=== PATIENT | male | born 1970 | race Caucasian/White ===

== ENCOUNTER → 2016-08-24 | Outpatient (CLI) | payer OTHER ==
[~2016-08-24] MED LIST: ASCA500 PO; CLR10 PO; GEMF600T3 PO; MULT-506 PO; OMEG10007 PO; OXYC1TAB3 PO; [UNRECOGNIZED DRUG - OTHER]; [UNRECOGNIZED DRUG - OTHER]
[2016-08-24 09:42] LABS: ALT/SGPT 53 U/L (12-78); AST/SGOT 33 U/L (15-37); BLOOD UREA NITROGEN 13 mg/dl (7-18); BUN/CREATININE RATIO 15.1 (10-20); CALCIUM 9.3 mg/dl (8.5-10.1); CARBON DIOXIDE 28 mmol/L (21-32); CHLORIDE 98 mmol/L (98-107); CHOLESTEROL 244 mg/dl (0-200); CREATININE 0.85 mg/dl (0.60-1.40); GLUCOSE 101 mg/dl (70-99); POTASSIUM 3.1 mmol/L (3.5-5.1); SODIUM 137 mmol/L (136-145)
[2016-08-24 09:47] LABS: ALB/GLOB RATIO 1.2 (0.9-2); ALKALINE PHOSPHATASE 82 U/L (45-117); CHOLESTEROL/HDL RATIO 4.7; HDL CHOLESTEROL 52 mg/dl; LDL CHOLESTEROL CALCULATED 123 mg/dl; TRIGLYCERIDES 346 mg/dl (0-150); VERY LOW DENSITY LIPOPROT CALC 69 mg/dl
== END | disposition home or self-care (01) ==
LOC: C.LAB1850 06:45
PROVIDERS: ATTEND Nurse Practitioner Family
DX: E78.5 Hyperlipidemia, unspecified (principal); I11.0 Hypertensive heart disease with heart failure

== ENCOUNTER → 2017-06-14 | Outpatient (CLI) | payer OTHER ==
[2017-06-14 12:12] LABS: BASO % 0.6 %; BASO ABS # 0.06 K/uL (0-0.2); EOS % 1.7 %; EOS ABS # 0.17 K/uL (0-0.5); HEMATOCRIT 42.5 % (42-52); HEMOGLOBIN 15.5 g/dL (14.0-18.0); IG# 0.05 K/uL (0.00-0.02); LYMPH % 21.3 %; LYMPH ABS # 2.11 K/uL (1.2-3.4); MEAN CELL VOLUME 91.8 fL (80-100); MEAN CORPUSCULAR HEMOGLOBIN 33.5 pg (25-34); MEAN CORPUSCULAR HGB CONC 36.5 g/dl (32-36); MEAN PLATELET VOLUME 10.9 fL (7.4-10.4); MONO % 8.4 %; MONO ABS # 0.83 K/uL (0.11-0.59); NEUT % 67.5 %; PLATELET COUNT 256 K/uL (130-400); RED CELL DISTRIBUTION WIDTH CV 13.7 % (11.5-14.5); RED CELL DISTRIBUTION WIDTH SD 44.8 fL (36.4-46.3); WHITE BLOOD COUNT 9.92 K/uL (4.8-10.8)
[2017-06-14 12:39] LABS: ALBUMIN 3.8 gm/dl (3.4-5.0); ALT/SGPT 31 U/L (12-78); AST/SGOT 20 U/L (15-37); BLOOD UREA NITROGEN 15 mg/dl (7-18); CALCIUM 8.7 mg/dl (8.5-10.1); CARBON DIOXIDE 25 mmol/L (21-32); CREATININE 0.78 mg/dl (0.60-1.40); GLUCOSE 98 mg/dl (70-99); POTASSIUM 3.5 mmol/L (3.5-5.1); SODIUM 136 mmol/L (136-145); URIC ACID 8.1 mg/dl (2.6-7.2)
[2017-06-14 12:48] LABS: ALKALINE PHOSPHATASE 76 U/L (45-117); CHOLESTEROL 236 mg/dl (0-200)
[2017-06-14 12:59] LABS: LDL CHOLESTEROL (DIRECT) 83 mg/dl
== END | disposition home or self-care (01) ==
LOC: C.LAB1850 10:26
PROVIDERS: ATTEND Nurse Practitioner Family
DX: R53.81 Other malaise (principal); E78.5 Hyperlipidemia, unspecified

== ENCOUNTER → 2017-09-21 | Outpatient (CLI) | payer OTHER | END | disposition home or self-care (01) | LOC: C.LAB1850 11:19 | PROVIDERS: ATTEND Nurse Practitioner Family | DX: E79.0 Hyperuricemia without signs of inflammatory arthritis and tophaceous disease (principal) ==

== ENCOUNTER 2020-10-24 06:07 | Observation (INO) ==
--- NOTE | 2020-10-06 12:12 | PAT Medication Instructions ---
Medication Instructions Date of Service October 06, 2020 Home Medications Medication Instructions Recorded gemfibrozil 600 mg tablet 600 mg PO BID #180 tab 05/09/20 metformin 1,000 mg tablet 1,000 mg PO BID #180 tab 07/01/20 meloxicam 7.5 mg tablet 7.5 mg PO BID #60 tab 07/03/20 albuterol sulfate 90 mcg/actuation aerosol inhaler 1 puff INHALATION Q6 PRN cetirizine 10 mg tablet 10 mg PO QPM gemfibrozil 600 mg tablet 600 mg PO BID metformin 1,000 mg tablet 1,000 mg PO BID meloxicam 7.5 mg tablet 7.5 mg PO BID allopurinol 100 mg PO QPM alprazolam 0.5 mg PO DAILY PRN amlodipine 10 mg PO QPM dextroamphetamine-amphetamine [Adderall] 20 mg PO BID diphenhydramine HCl [Benadryl Allergy] 25 - 100 mg PO HS PRN hydrochlorothiazide 25 mg PO QPM lisinopril 40 mg PO QPM melatonin 10 mg PO HS PRN montelukast 10 mg PO QPM multivitamin 1 tab PO QPM ASK your surgeon for instructions meloxicam 7.5 mg tablet 7.5 mg PO BID STOP taking 48 hours before surgery gemfibrozil 600 mg tablet 600 mg PO BID Take morning of surgery With a small sip of water, OTHERWISE NOTHING TO EAT OR DRINK AFTER MIDNIGHT: albuterol sulfate 90 mcg/actuation aerosol inhaler 1 puff INHALATION Q6 PRN (if needed) alprazolam 0.5 mg PO DAILY PRN (if needed) *Bring your inhaler with you to the hospital* Take evening before surgery albuterol sulfate 90 mcg/actuation aerosol inhaler 1 puff INHALATION Q6 PRN (if needed) cetirizine 10 mg tablet 10 mg PO QPM metformin 1,000 mg tablet 1,000 mg PO BID meloxicam 7.5 mg tablet 7.5 mg PO BIDallopurinol 100 mg PO QPM alprazolam 0.5 mg PO DAILY PRN (if needed) amlodipine 10 mg PO QPM dextroamphetamine-amphetamine [Adderall] 20 mg PO BID diphenhydramine HCl [Benadryl Allergy] 25 - 100 mg PO HS PRN (if needed) hydrochlorothiazide 25 mg PO QPM lisinopril 40 mg PO QPM melatonin 10 mg PO HS PRN (if needed) montelukast 10 mg PO QPM multivitamin 1 tab PO QPM Other Notes If you have any questions please call us at [phone] or [phone] or [phone] or [phone]
--- NOTE | 2020-10-07 08:30 | Anesthesiology Consultation ---
Date of Service October 07, 2020 Assessment & Plan (1) Encounter for pre-operative examination: COVID Status: As of 10/07 assessment, patient denies travel to endemic area, known exposure/sick contacts, or symptoms of COVID19. Patient instructed that they and their household members must follow strict social distancing guidelines, wear a mask in public and avoid travel/events/gatherings for 14 days prior to surgery. Preoperative COVID19 testing to be completed prior to surgery per surgeon's arrangements (10/21 per pt, 3 days to accommodate his work schedule). Patient made aware to self-isolate as much as possible between COVID testing and surgery. Patient is fully vaccinated. BSG AM DOS Chart Review Chart Review: Acceptable Risk for Surgery and Patient seen in Pre Admission Testing Teaching & Discussion Instructed NPO after midnight before surgery, except medications with 15 cc of water. Medication instructions provided according to the PAT guidelines. History Surgery Operation Date: 10/24/20 11:25 Proposed Procedures p Right Total Hip Arthroplasty - Abner Brooks MD Height/Weight Height: 5 ft 11 in Weight: 107.9 kg Allergies Allergy/AdvReac Type Severity Reaction Status Date / Time No Known Allergies Allergy Unknown Verified 10/03/20 07:09 Medications Home Medications Medication Instructions Recorded Confirmed Last Taken albuterol sulfate 90 mcg/actuation 1 puff INHALATION Q6 PRN #1 gm 03/05/19 10/03/20 03/14/19 12:00 aerosol inhaler cetirizine 10 mg tablet 10 mg PO QPM 03/05/19 10/03/20 03/26/19 21:00 gemfibrozil 600 mg tablet 600 mg PO BID #180 tab 05/09/20 10/03/20 Unknown metformin 1,000 mg tablet 1,000 mg PO BID #180 tab 07/01/20 10/03/20 Unknown meloxicam 7.5 mg tablet 7.5 mg PO BID #60 tab 07/03/20 10/03/20 Unknown allopurinol 100 mg PO QPM 10/03/20 10/03/20 Unknown alprazolam 0.5 mg PO DAILY PRN 10/03/20 10/03/20 Unknown amlodipine 10 mg PO QPM 10/03/20 10/03/20 Unknown dextroamphetamine-amphetamine 20 mg PO BID 10/03/20 10/03/20 Unknown [Adderall] diphenhydramine HCl [Benadryl 25 - 100 mg PO HS PRN 10/03/20 10/03/20 Unknown Allergy] hydrochlorothiazide 25 mg PO QPM 10/03/20 10/03/20 Unknown lisinopril 40 mg PO QPM 10/03/20 10/03/20 Unknown melatonin 10 mg PO HS PRN 10/03/20 10/03/20 Unknown montelukast 10 mg PO QPM 10/03/20 10/03/20 Unknown multivitamin 1 tab PO QPM 10/03/20 10/03/20 Unknown Past Medical History Medical History ADHD Asthma Has not used inhaler all year. Seems allergy-induced, and mask-wearing has improved symptoms. Avascular necrosis of bone of right hip Diabetes mellitus, type 2 Gout Hyperlipidemia Hypertension Insomnia Alprazolam PRN Kidney stones Lumbar spondylosis Exercise / Class Metabolic Activity II 4-5 Yardwork/Stairs/Walk up hill Past Family History Family History Other Adopted Family history not known due to adoption Past Surgical History Surgical History History of colonoscopy History of left knee surgery History of open reduction and internal fixation (ORIF) procedure right leg---hardware in place History of tonsillectomy Past Anesthesia History No Hx of Anesthesia Complications and No Family Hx of Anesthesia Complications (adopted) History of PONV No Hx of PONV and No Hx of Motion Sickness Social History Smoking Status: Former smoker tobacco type: cigarettes Do You Dip or Chew Tobacco: No Smoking End Date: 2017 Hx Alcohol Use: Yes Alcohol type: hard liquor alcohol intake frequency: 3 or more drinks per day Hx Substance Use: No substance use type: does not use Review of Systems Pt denies any recent chest pain, shortness of breath, palpitations, cough, fever, URI, or uncontrolled acid reflux. Physical Exam Vital Signs BP: 133/84 P: 109bpm SPO2: 97% RA T: 98.4 F R: 16 ENMT Mouth: + dental restorations (few crowns on molars) and + small oral opening; no chipped teeth and no loose teeth Thyromental Distance: < 3.5 Finger Breadths (3) Mallampati Class: IV Neck normal visual inspection and + facial hair (small short rey); neck extension not limited Respiratory normal respiratory effort, lungs clear to auscultation + prolonged expiratory phase Cardiovascular Rate/Rhythm: regular rhythm and + tachycardic Heart Sounds: no murmur Extremities: no edema Testing Laboratory Results 10/07/20 08:44 10/07/20 08:44 PT 10.1 Seconds (9.0-12.0) 10/07/20 08:44 INR 1.0 (0.9-1.1) 10/07/20 08:44 APTT 26.5 Seconds (21.0-31.0) 10/07/20 08:44 Blood Type O Positive 10/07/20 08:44 Antibody Screen NEGATIVE 10/07/20 08:44 Electrocardiogram Date: 10/07/20 Tachycardia at 102 bpm. Nonspecific intraventricular conduction delay. Nonspecific ST and T wave abnormality. Compared with EKG of 10/20/2008, QRS duration has increased and T wave inversion is no longer evident in inferior leads. Chest X-Ray Date: 10/07/20 Findings: + NAD Pulmonary Function Test Date: 05/15/19 Mild to moderate airflow obstruction with a significant post-bronchodilator response. Normal lung volumes and diffusion.
--- NOTE | 2020-10-07 09:57 | XRay Report ---
XR chest Pre-admission PA/Lat HISTORY: 50 years-old Male pat chronic degenerative joint disease COMPARISON: Chest and rib radiographs 10/20/2008 TECHNIQUE: PA and lateral views of the chest FINDINGS: Cardiac mediastinal and hilar silhouettes are within normal limits. No pneumothorax, pleural effusion , airspace consolidation or overt pulmonary edema. The bones of the chest appear grossly intact. Spon dylitic spurring of the spine. IMPRESSION: No acute process. ACT 112: Negative or not required by law. The above report was generated using voice recognition software. It may contain grammatical, syntax o r spelling errors. Electronically signed by: Zachary Garcia M.D. 10/07/2020 9:55 AM
[2020-10-07 10:47] LABS: Basophils # (auto) 0.05 K/uL (0-0.2); Basophils % (auto) 0.5 %; Eosinophils % (auto) 1.9 %; Hematocrit (blood only) 37.9 % (42-52); Hemoglobin 13.5 g/dL (14.0-18.0); Immature Granulocytes # (auto) 0.06 K/uL (0.00-0.02); Immature Granulocytes % (auto) 0.6 %; Lymphocytes # (auto) 2.87 K/uL (1.2-3.4); Lymphocytes % (auto) 26.7 %; Mean Corpuscular Hemoglobin 32.7 pg (25-34); Mean Corpuscular Hgb Conc 35.6 g/dL (32-36); Mean Corpuscular Volume 91.8 fL (80-100); Mean Platelet Volume 11.5 fL (7.4-10.4); Monocytes # (auto) 0.84 K/uL (0.11-0.59); Monocytes % (auto) 7.8 %; Neutrophils # (auto) 6.73 K/uL (1.4-6.5); Neutrophils % (auto) 62.5 %; Platelet Count 312 K/uL (130-400); RDW Standard Deviation 43.5 fL (36.4-46.3); Red Blood Count 4.13 M/uL (4.7-6.1); White Blood Count 10.75 K/uL (4.8-10.8)
[2020-10-07 11:08] LABS: Partial Thromboplastin Time 26.5 Seconds (21.0-31.0); Prothrombin Time 10.1 Seconds (9.0-12.0)
--- NOTE | 2020-10-07 12:07 | Electrocardiogram Report ---
Test Reason : Blood Pressure : / mmHG Vent. Rate : 102 BPM Atrial Rate : 102 BPM P-R Int : 160 ms QRS Dur : 124 ms QT Int : 372 ms P-R-T Axes : 065 -13 078 degrees QTc Int : 484 ms Sinus tachycardia Non-specific intra-ventricular conduction delay Nonspecific ST and T wave abnormality Abnormal ECG When compared with ECG of 20-OCT-2008 20:02, QRS duration has increased T wave inversion no longer evident in Inferior leads Confirmed by Lee Pappas ([id number]) on 10/07/2020 12:06:45 PM Referred By: Abner Brooks Confirmed By:Eliezer Pappas
[2020-10-07 12:17] LABS: BUN Creatinine Ratio 14.9 (10-20); Calcium 9.7 mg/dl (8.5-10.1); Creatinine Clr Calc Pharmacy 109.1 ml/min; Est GFR (African American) 101.1 ml/min; Est GFR (Non-African American) 87.2 ml/min; Potassium 4.3 mmol/L (3.5-5.1)
[~2020-10-24 06:07] MED LIST changes: +ACETAMINOPHEN 500 MG TAB PO SCH; -ASCA500 PO; -CLR10 PO; +FAMOTIDINE 20 MG TAB PO SCH; +GABAPENTIN 900 MG DOSE PO SCH; -GEMF600T3 PO; +LR 500ML BOLUS, THEN 15ML/HR IV SCH; +LR 60ML/HR IV SCH; +MISSING PHYSICIAN SIGNATURE ON ORDER SCH; -MULT-506 PO; -OMEG10007 PO; -OXYC1TAB3 PO; +Scopolamine 1 MG TDSY TD SCH; +TRANEXAMIC ACID 1,000 MG **IV Pre-op IV SCH; -[UNRECOGNIZED DRUG - OTHER]; -[UNRECOGNIZED DRUG - OTHER]; +ceFAZolin 2000MG 2,000 MG/15 ML SYR IV SCH
--- NOTE | 2020-10-24 06:51 | History & Physical Bridge Note ---
Date of Service October 24, 2020 History & Physical Bridge Note I have examined the patient, reviewed the History & Physical and in the interval since the performance of the History & Physical I have noted the following changes of clinical significance: no changes noted
[2020-10-24] MEDS ORDERED: BUPIVACAINE 0.5 % 5 MG/1 ML PF 10ML VIAL ONE (07:16)
[2020-10-24] MEDS ORDERED: LIDOCAINE 2% 2 ML VIAL/AMP(20MG/ML) INFIL ONE (08:15)
[2020-10-24] MEDS ORDERED: PROPOFOL IV EMULSION 10 MG/ML 20 ML VIAL IV ONE ×3 (08:15→10:11)
[2020-10-24] MEDS ORDERED: MIDAZOLAM HCL 1 MG/ML 2ML VIAL ONE (08:16)
[2020-10-24] MEDS ORDERED: fentaNYL citrate 100 MCG/2 ML VIAL ONE (08:16)
[2020-10-24] MEDS ORDERED: MoRPHine SULFATE PF 1 MG/ML 10 ML AMP/VIAL ONE (08:33)
[2020-10-24] MEDS ORDERED: BUPIVACAINE/EPINEPHRINE 0.5% MPF 1:200,000 30 ML VIAL ONE (08:50)
[2020-10-24] MEDS ORDERED: ePHEDrine sulfate 50 MG/ML AMP IV PRN (09:11)
[2020-10-24] MEDS ORDERED: diphenhydrAMINE 50 MG/ML VIAL IV PRN (09:11)
[2020-10-24] MEDS ORDERED: NALOXONE HCL 0.4 MG/1 ML VIAL/CARP IV PRN (09:11)
[2020-10-24] MEDS ORDERED: ONDANSETRON INJ 2 MG/ML 2 ML VIAL IV PRN (09:11)
[2020-10-24] MEDS ORDERED: HYDROmorphone INJ 0.5 MG/0.5 ML SYR IV PRN (09:11)
[2020-10-24] MEDS ORDERED: NALOXONE HCL 1 MG in SODIUM CHLORIDE 0.9% 1000ML 1,000 ML IV PRN (09:11)
[2020-10-24] MEDS ORDERED: LACTATED RINGER'S 500 ML IV PRN (09:11)
[2020-10-24] MEDS ORDERED: NALOXONE HCL 0.08 MG in SYRINGE 1.8 ML IV PRN (09:11)
[2020-10-24] MEDS ORDERED: NO NARCOTICS OR SEDATIVES SCH (09:15)
[2020-10-24] MEDS ORDERED: DC INTRASPINAL MORPHINE SCH (09:15)
[2020-10-24] MEDS ORDERED: KETAMINE 50 MG/5 ML SYRINGE ONE (09:28)
[2020-10-24] MEDS ORDERED: PHENYLEPHRINE 100MCG/ML 5ML SYR ONE (10:10)
--- NOTE | 2020-10-24 10:59 | Operative Report ---
Post Operative Report Pre & Post Diagnosis Operation Date: 10/24/20 08:50 Pre-Op Diagnosis: Avascular Necrosis of Bone Hip Right Post-Op Diagnosis: Avascular Necrosis of Bone Hip Right I identified the patient and participated in the time-out.: Yes Procedure Operation Date: 10/24/20 08:50 Actual Procedures p Right Total Hip Arthroplasty--Uncemented(Right) - Abner Brooks MD Surgeon Abner Brooks MD Interviewing Clerk CADY Brooks Estimated Blood Loss 200 Findings Consistent with Post-Op Diagnosis Operative findings revealed a moderate-sized hip joint effusion. He had subchondral fracture with degloving of the articular surface of the femoral head. Fluids 1500 cc Specimens Right femoral head sent for pathology. Drains None. 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 X-rays revealed obvious large segment of the basilar necrosis with collapse. He failed conservative measures and elected proceed with surgical treatment. Description of Procedure Operative implants consist of: 1. Biomet G7 size 56 Wilson acetabular shell. 2. Biomet 6.5 cancellous acetabular screws 1 of 35 mm length 125 mm length. 3. [place] hole tripe scraper. 4. Highly cross-linked polyethylene liner with a 56 mm outer diameter and 40 mm diameter. 5. DePuy Corail size 14 KLA femoral stem. 6. +8.5/40 mm ceramic articular ball. The patient was taken to the operating room, identified and placed on the operating table supine position but all contact areas were appropriately padded. IV antibiotics 5 by anesthesia team. A spinal anesthetic and been implemented holding area. Basilio catheter was placed in sterile fashion. The patient then placed in the left lateral cubitus position. Axillary roll was placed. A Stulberg hip positioner was used for positioning. The right hip and leg were then prepped and draped in usual sterile fashion. A posterior lateral approach to the right hip was then performed through a curvilinear incision centered over the greater trochanter. Sharp dissection got through subcutaneous this down to the IT band gluteal fascia. The IT band gluteal fascia then incised longitudinally in line with skin incision. The underlying greater bursa was excised. The the piriformis and external rotators and the posterior hip joint capsule were then released from the posterior aspect hip joint as a single layer. Great care was taken throughout the procedure p rotect the sciatic nerve at all times. Hip was internally rotated and dislocated. A femoral neck osteotomy cut was then made with Final Cut about 18 mm above the lesser trochanter. Femoral head was removed and sent for pathology. The femur was retracted anteriorly. Attention drawn the acetabulum. The acetabular labrum was excised. Pulvinar fat was excised. Sequential reaming the acetabular was then performed begin with a size 47 and progressing up to a 55. I did reamed a little bit with a 56 mm reamer. Of note, we did curette the cartilage off the acetabulum before reaming. A 56 mm Biomet G7 acetabular shell was then placed in about 40 degrees lateral opening and 20 degrees of anteversion. Was fixed with two 6.5 cancellous acetabular screws. Trial liner was placed. We did elect to use a 40 head in order to maximize his stability as I was concerned about his alcohol use and compliance. Attention drawn the femur. The proximal femur was entered with a cookie-cutter followed by canal finder. I then broached. The size 8 and progressing up to 14. Got excellent fit of 14. Calcar reamer was used smooth and off the calcar. Then trialed the hip and the +8.5 articular ball provided full stability in full extension and external rotation flexion to 90 Degrees internal rotation to over [address] We elect to place these implants. All trial implants were removed. An apex hole tripe scraper was placed but highly cross-linked polyethylene liner was placed. A DePuy size 14 KLA femoral stem was impacted in position. +8.5/40 mm ceramic articular ball was placed. Hip was once again located and found to be stable. Attention drawn toward closing. The wound was irrigated scope soft pulsatile lavage solution. I did inject locally with 60 cc of half percent Marcaine with epinephrine. The posterior capsule and external rotators were then repaired through drill holes in the posterior trochanter as a single layer with #2 Tycron suture. The IT band gluteal fascia then closed in 1 PDS suture running fashion subcutaneous tissues then closed with 2 layers the deep layer #1 Vicryl suture in a buried interrupted fashion the subcutaneous tissues with 2-0 Dexon suture in a buried interrupted fashion. Skin was then closed with skin edy. Leg was then cleaned and dried and sterile dressing was Xeroform, 4 x 4's, sterile ABD pad, foam tape was applied. The patient then transferred to the recovery room in stable condition. Patient tolerated procedure well and there were no complications. Moe Brooks, my physician assistant to the ceo, was present for the entire procedure. His assistance was essential and required for appropriate patient positioning, prepping and draping, surgical exposure, performing the technical details of the operation, placement the implants, closure of the wound, and placement of the sterile bandage. I attest to the content of the Intraoperative Record and any orders documented therein. Any exceptions are noted below.
[2020-10-24] MEDS ORDERED: MAGNESIUM HYDROXIDE SUSP 30 ML UDC PO PRN (11:49)
[2020-10-24] MEDS ORDERED: TAMSULOSIN HCL 0.4 MG CAP PO PRN (11:49)
[2020-10-24] MEDS ORDERED: ALBUTEROL HFA 8 GM INHALER INH PRN (11:49)
[2020-10-24] MEDS ORDERED: bisacodyL 10 MG SUPP PR PRN (11:49)
[2020-10-24] MEDS ORDERED: DEXTROSE 50% 50 ML SYRINGE IV PRN (11:49)
[2020-10-24] MEDS ORDERED: GLUCAGON FOR INJ 1 MG VIAL SQ PRN (11:49)
[2020-10-24] MEDS ORDERED: GLUCOSE 40% GEL 15 GM TUBE PO PRN (11:49)
[2020-10-24] MEDS ORDERED: METOCLOPRAMIDE HCL INJ 5 MG/ML 2 ML VIAL IV PRN (11:49)
[2020-10-24] MEDS ORDERED: ALUMINUM/MAGNESIUM SUSP 30 ML UDC PO PRN (11:49)
[2020-10-24] MEDS ORDERED: CARBOHYDRATES FOR HYPOGLYCEMIA PO PRN (11:49)
[2020-10-24] MEDS ORDERED: GLUCOSE 10 TABS/TUBE PO PRN (11:49)
--- NOTE | 2020-10-24 12:00 | XRay Report ---
XR hip 1V RT w pelvis CLINICAL HISTORY: Postoperative evaluation. COMPARISON: Right hip radiographs June 30, 2020. FINDINGS: Alignment of the total right hip arthroplasty is anatomic. There are acetabular screws and skin edy. There is no periprosthetic fracture or unexpected radiopaque foreign body. IMPRESSION: Expected findings following total right hip arthroplasty. ACT 112: Negative or not required by law. Electronically signed by: Skinny Islas M.D. 10/24/2020 11:59 AM
[2020-10-24] MEDS ORDERED: PHARMACY GLYCEMIC MGMT CONSULT PRN (12:20)
[2020-10-24] MEDS: SODIUM CHLORIDE 0.9% 1000ML 1,000 ML IV SCH ×3 (12:30→18:30)
--- NOTE | 2020-10-24 13:18 | Pharmacy Report ---
Pharmacy Glycemic Short Note 2 - Date of Service October 24, 2020 - Glycemic Short BSG Results (Last 24 hours): 10/24/20 10/24/20 06:31 12:15 POC Glucose 122 H 109 H OUTPATIENT ANTIDIABETIC REGIMEN: * Metformin 1gm PO BID * HbA1c: 5.7% (06/30/20) -- updated A1c ordered for tomorrow ASSESSMENT: * Mr Bruno is a 50yo diabetic male POD 0 s/p R total hip this morning w/ Dr Broosk. * It does not appear as though pt received any intraoperative steroids. * Patient is ordered a diabetic diet post-op. * Will hold oral agents for admission and utilize SQ basal bolus insulin regimen which is the recommended regimen for inpatient glycemic control. * Oral agents are not recommended for inpatient use d/t drug interactions, changing PO intake, and difficulty titrating for acute hyper/hypoglycemia. ADA recommends re-initiating outpatient oral agents 1-2 days prior to discharge if/when appropriate if they were held on admission. * BSGs have been great so far today (122,109), so do not anticipate that pt will have significant insulin requirements. PLAN FOR INPATIENT GLYCEMIC CONTROL: * Hold outpatient oral diabetes medications * Will plan to resume Metformin tomorrow morning if pt is tolerating his diet. * Basal insulin * none at this time * Bolus insulin * NovoLog per scale ACHS or Q6hrs while NPO * Goal Range: Low 110 mg/dL - High 140 mg/dL * Correction Factor: 30 mg/dL/unit * Nutritional / Prandial insulin per carb ratio of 1 unit per 10 grams CHO consumed PLAN FOR DISCHARGE: * A1c: 5.7% * Patient's A1c indicates excellent glycemic control as an outpt. Expect that pt may resume home regimen on discharge, as long as labs are appropriate.
--- NOTE | 2020-10-24 14:01 | Anesthesiology Progress Note ---
Date of Service October 24, 2020 Anesthesia Post Procedure Vital Signs Vital Signs: Temp Pulse Pulse Pulse Resp BP BP 10/24/20 12:40 36.4 C L 91 H 18 149/98 H 10/24/20 12:17 36.7 C 90 16 160/98 H 10/24/20 11:55 10/24/20 11:30 36.5 C 87 18 132/80 10/24/20 11:20 87 18 146/94 H 10/24/20 11:10 81 16 126/75 10/24/20 11:00 84 16 142/89 H 10/24/20 10:50 96 H 16 137/68 10/24/20 10:43 36.7 C 94 H 16 130/83 10/24/20 07:48 88 20 150/99 H 10/24/20 06:54 37.1 C 102 H 20 133/95 Pulse Ox Pulse Ox 10/24/20 12:40 92 10/24/20 12:17 96 10/24/20 11:55 98 10/24/20 11:30 99 10/24/20 11:20 96 10/24/20 11:10 96 10/24/20 11:00 95 10/24/20 10:50 97 10/24/20 10:43 97 10/24/20 07:48 95 10/24/20 06:54 96 Pain Intensity Right Hip: Pain Intensity: 2 Transfer of Care Handoff Completed per policy Notes Mental Status: alert / awake / arousable and participated in evaluation Patient Amnestic to Procedure: Yes Nausea / Vomiting: adequately controlled Pain: adequately controlled Airway Patency, RR, SpO2: stable & adequate BP & HR: stable & adequate Hydration State: stable & adequate Neuraxial Anesthesia: was administered and sensory block is resolving Anesthetic Complications: no major complications apparent and Pt Satisfied with anesthetic care
[2020-10-24] MEDS: ACETAMINOPHEN 500 MG TAB PO SCH ×2 (14:32→21:29)
[2020-10-24] MEDS: KETOROLAC 30 MG/ML VIAL IV SCH ×2 (14:32→18:28)
[2020-10-24] MEDS ORDERED: Scopolamine CHECK PATCH PLACEMENT SCH (16:00)
[2020-10-24] MEDS: Scopolamine CHECK PATCH PLACEMENT SCH (16:44)
[2020-10-24] MEDS ORDERED: TRANEXAMIC ACID / 0.7% NACL 1,000 MG/100 ML BAG IV SCH (16:45)
[2020-10-24] MEDS: INSULIN ASPART 100 UNITS/ML 3 ML PEN SC SCH ×2 (17:46→21:29)
[2020-10-24] MEDS: ASCORBIC ACID 500 MG TAB PO SCH (17:47)
[2020-10-24] MEDS: ceFAZolin 2000MG 2,000 MG/15 ML SYR IV SCH (17:49)
[2020-10-24] MEDS ORDERED: LORazepam 1 MG/2 ML VIAL IV PRN ×2 (19:28→20:17)
[2020-10-24] MEDS ORDERED: LORazepam 3 MG/6 ML VIAL IV PRN (19:28)
[2020-10-24] MEDS ORDERED: ATIVAN IV ALCOHOL WITHDRAWL IV PRN (19:28)
[2020-10-24] MEDS ORDERED: LORazepam 2 MG/4 ML VIAL IV PRN (19:28)
--- NOTE | 2020-10-24 19:37 | Hospitalist Consultation ---
Date of Consultation October 24, 2020 Assessment & Plan (1) Avascular necrosis of bone of right hip: As per HPI - Post operative care per Orthopaedics - ABX per Orthopaedics - SCD's TEDS for VTE- chemo prophy per Orthopaedics - pain control tiered- Narcan available - Bowel regime appropriate - PT/OT and activity per Orthopaedics (2) Alcohol use: 20 drinks per week liqour - AAWS- - Patient is already ordered Librium - agree - Patient is on home Xanax- agree - Thiamine 100 daily- If patient scores are elevated 6-8 Notify hospitalist and will acutely change managment (3) Hyperlipidemia: Continue gemfibrozil (4) Benign essential hypertension: Continue Amlodipine - Hold lisinopril 24 hours postoperative follow renal function - If stable can restart - If combined with tachycardia, fevers, diaphoresis, elevated AAWS- notify hospitalist for adjustment of withdrawal medications (5) Asthma: Continue albuterol (6) Allergic rhinitis: - Continue albuterol - Continue Zyrtec - Continue Singulair (7) ADD (attention deficit disorder): Continue home Ritalin (8) Dysmetabolic syndrome X: As you have done hold his metformin and appropriate sliding scale coverage History of Present Illness Attending Physician: Abner Brooks MD History of Present Illness 50 YOM with past medical history of ADD, allergic rhinitis, anxiety, asthma, HTN, HLD, metabolic syndrome. Post Op day #0 from right total hip arthroplasty secondary to avascular necrosis. Patient also has terminal gauger use of NSAIDs and back pain, he works as a dispatcher for [employer]. He feels as though his ADD is well controlled as well as his allergies. He has an albuterol inhaler for his asthma and allergies, but never uses it. Symptoms are controlled with Zyrtec and Singular. He is on Xanax for his anxiety, but reports that he only uses this to sleep on occasions, maybe 2 x per month. He last took this the night prior to surgery. He does not smoke or vape. He states that he has 2 doubles of liquor 5 x per week. He has gone 1-2 weeks before without drinking and has never had any seizures, shakes, hallucinations, or became diaphoretic. His blood pressure as an outpatient appears well controlled on an DIAMOND and Ca++channel della. He is on a fibrate for his lipids and for his metabolic syndrome / pre-diabetes he is on Metformin. He was evaluated in his room post recovery and was sleeping. He was awoken by the knock on the door. He is briskly appropriate. States he is comfortable and his pain is well controlled right now. No nausea or vomiting following anesthesia, is tolerating regular diet and liquids. He is making adequate urine via his Basilio. His incision is CDI. Overall doing well at this time. Orders and history reviewed: Agree with current medication regime for his alcohol withdraw. AAWS score added, his baseline Xanax will be assisting as well. If needed you can either increase his Librium or change to IV benzodiazepine coverage if his withdraw scores increase or vitals reflect withdraw pattern. Allergies Allergy/AdvReac Type Severity Reaction Status Date / Time No Known Allergies Allergy Unknown Verified 10/24/20 06:38 Home Medications Medication Instructions Recorded Confirmed Type albuterol sulfate 90 mcg/actuation 1 puff INHALATION Q6 PRN #1 gm 03/05/19 10/24/20 History aerosol inhaler cetirizine 10 mg tablet 10 mg PO QPM 03/05/19 10/24/20 History gemfibrozil 600 mg tablet 600 mg PO BID #180 tab 05/09/20 10/24/20 Rx metformin 1,000 mg tablet 1,000 mg PO BID #180 tab 07/01/20 10/24/20 Rx meloxicam 7.5 mg tablet 7.5 mg PO BID #60 tab 07/03/20 10/24/20 Rx allopurinol 100 mg PO QPM 10/03/20 10/24/20 History amlodipine 10 mg PO QPM 10/03/20 10/24/20 History diphenhydramine HCl [Benadryl 25 - 100 mg PO HS PRN 10/03/20 10/24/20 History Allergy] hydrochlorothiazide 25 mg PO QPM 10/03/20 10/24/20 History lisinopril 40 mg PO QPM 10/03/20 10/24/20 History melatonin 10 mg PO HS PRN 10/03/20 10/24/20 History montelukast 10 mg PO QPM 10/03/20 10/24/20 History multivitamin 1 tab PO QPM 10/03/20 10/24/20 History alprazolam 0.5 mg tablet 0.5 mg PO DAILY PRN #30 tab 10/13/20 10/24/20 Rx dextroamphetamine-amphetamine 20 20 mg PO BID #60 tab 10/13/20 10/24/20 Rx mg tablet Patient History Medical History ADHD Asthma Has not used inhaler all year. Seems allergy-induced, and mask-wearing has improved symptoms. Avascular necrosis of bone of right hip Diabetes mellitus, type 2 Gout Hyperlipidemia Hypertension Insomnia Alprazolam PRN Kidney stones Lumbar spondylosis Surgical History History of colonoscopy History of left knee surgery History of open reduction and internal fixation (ORIF) procedure right leg---hardware in place History of tonsillectomy Family History Other Adopted Family history not known due to adoption Social History Smoking Status: Former smoker Age Started Using Tobacco: 14; Age Quit Using Tobacco: 46; packs per day: 0.5; Smoking End Date: 2017; Second Hand Exposure: No; Do You Dip or Chew Tobacco: No; Tobacco Cessation Education Requested by Patient: No Hx Alcohol Use: Yes Alcohol type: hard liquor Hx Substance Use: No Preferred Language: Slovenian Communication Ability: Effective Visual Impairment: No Limitations Hearing Ability: Normal Diver Helper Required: No Beliefs That Will Affect Care: None marital status: single Current Living Situation: Alone current occupational status: employed current occupation: Delivery Dispatcher Other Information That Helps Us Care for You: No Feels Safe at Home: Yes Safety Concerns: Feels Safe At This Time Childhood Exposure to Second-Hand Smoke: No Dental Care, Regularly: Yes Physical Activity Frequency: 5-6 Times per Week Seatbelt Use: always Sunscreen Use: Yes Assistive Devices: Crutches and Walker Review of Systems Review of Systems: REVIEW OF SYSTEMS: Constitutional: No fever, sweats or chills Eyes: No diplopia, no worsening or blurred vision ENT: normal hearing, no trouble swallowing Respiratory: No cough, sputum, dyspnea at rest or on exertion Cardiovascular: No chest pain, tightness or palpitations Abdomen: No pain, nausea, vomiting, diarrhea or constipation Musculoskeletal: currently No joint pain, calf pain, swelling Neurologic: No weakness, numbness/tingling, or balance problems Psychiatric: No anxiety or depression Skin: No rash or itch Physical Exam Physical Exam: PHYSICAL EXAM: General: awake, alert, no apparent distress Head: Normocephalic, atraumatic ENT: PERRL, EOMI, no pharyngeal exudate, mucous membranes moist Neuro: AAO x 3, has some nervous tics, speech clear and appropriate, strength intact bilaterally 5/5, sensation intact and equal all extremities and dermatomes, no pronator drift Chest: equal rise and fall of the chest, no accessory muscle use, no heaves or thrills, Clear to auscultation, on nasal cannula, but removed during exam and SPO2 96% Cardiac: Regular rate and rhythm, S1S2, skin warm dry, cap refill <3 seconds, peripheral pulses +2 no JVD, no murmur,, no edema GI: NABS x 4 quadrants, soft, nontender to palpation, no rebound, guarding or tenderness : Basilio to gravity, no pain, no CVA tenderness, Extremities: Normal inspection, no peripheral edema or erythema, calfs nontender to palpation, sensation intact through out. Right hip with foam tape dressing. Surrounding area without errythema or hematoma. Perpihperal pulses strong and extremity is warm. Psych: Normal mood and affect Skin: no rash or erythema Results & Data Results & Data ([facility]) Vital Signs (Past 12 Hours) Vital Signs Temp Pulse Pulse Pulse Resp BP BP 10/24/20 17:44 36.7 C 96 H 18 163/103 H 10/24/20 16:20 36.8 C 99 H 16 158/107 H 10/24/20 15:00 36.8 C 89 16 152/97 H 10/24/20 14:27 36.5 C 88 16 152/91 H 10/24/20 12:40 36.4 C L 91 H 18 149/98 H 10/24/20 12:17 36.7 C 90 16 160/98 H 10/24/20 11:55 10/24/20 11:45 36.7 C 89 16 152/92 H 10/24/20 11:30 36.5 C 87 18 132/80 10/24/20 11:20 87 18 146/94 H 10/24/20 11:10 81 16 126/75 10/24/20 11:00 84 16 142/89 H 10/24/20 10:50 96 H 16 137/68 10/24/20 10:43 36.7 C 94 H 16 130/83 10/24/20 07:48 88 20 150/99 H Pulse Ox Pulse Ox 10/24/20 17:44 96 10/24/20 16:20 97 10/24/20 15:00 100 10/24/20 14:27 97 10/24/20 12:40 92 10/24/20 12:17 96 10/24/20 11:55 98 10/24/20 11:45 98 10/24/20 11:30 99 10/24/20 11:20 96 10/24/20 11:10 96 10/24/20 11:00 95 10/24/20 10:50 97 10/24/20 10:43 97 10/24/20 07:48 95 Laboratory Results Abnormal lab results 10/24/20 10/24/20 10/24/20 Range/Units 06:31 12:15 17:10 POC Glucose 122 H 109 H 115 H (70-99) mg/dl Diagnostic Findings Chest X-Ray 10/07/20 08:11 XR chest Pre-admission PA/Lat HISTORY: 50 years-old Male pat chronic degenerative joint disease COMPARISON: Chest and rib radiographs 10/20/2008 TECHNIQUE: PA and lateral views of the chest FINDINGS: Cardiac mediastinal and hilar silhouettes are within normal limits. No pneumothorax, pleural effusion, airspace consolidation or overt pulmonary edema. The bones of the chest appear grossly intact. Spondylitic spurring of the spine. IMPRESSION: No acute process. The above report was generated using voice recognition software. It may contain grammatical, syntax or spelling errors. Electronically signed by: Zachary Garcia M.D. 10/07/2020 9:55 AM Hip/Pelvis X-Ray 10/24/20 10:49 XR hip 1V RT w pelvis CLINICAL HISTORY: Postoperative evaluation. COMPARISON: Right hip radiographs June 30, 2020. FINDINGS: Alignment of the total right hip arthroplasty is anatomic. There are acetabular screws and skin edy. There is no periprosthetic fracture or unexpected radiopaque foreign body. IMPRESSION: Expected findings following total right hip arthroplasty. Electronically signed by: Skinny Islas M.D. 10/24/2020 11:59 AM Medications Administered Acetaminophen (Acetaminophen 500 Mg Tab) 1,000 mg PO Q8 [facility] Stop: 11/23/20 13:59 Last Admin: 10/24/20 14:32 Dose: 1,000 mg Documented by: [id number] Ascorbic Acid (Ascorbic Acid 500 Mg Tab) 500 mg PO BIDM [facility] Stop: 11/23/20 16:59 Last Admin: 10/24/20 17:47 Dose: 500 mg Documented by: [id number] Sodium Chloride (Nss 1000ml) 1,000 mls @ 15 mls/hr IV .Q24H [facility] Stop: 10/25/20 09:15 Last Admin: 10/24/20 12:30 Dose: Not Given Documented by: [id number] Cefazolin Sodium (Ancef 2000mg) 2,000 mg in 15 mls @ 3.75 mls/min IV Q8H [facility]; Protocol Stop: 10/25/20 01:03 Last Admin: 10/24/20 17:49 Dose: 3.75 mls/min Documented by: [id number] Sodium Chloride (Nss 1000ml) 1,000 mls @ 150 mls/hr IV .Q6H40M [facility] Stop: 10/25/20 06:00 Last Admin: 10/24/20 18:30 Dose: 150 mls/hr Documented by: [id number] Infusion: 10/24/20 18:30 Dose: 150 mls/hr Documented by: [id number] Admin: 10/24/20 12:41 Dose: 150 mls/hr Documented by: [id number] Insulin Aspart (Insulin Aspart 100 Units/Ml 3 Ml Pen) 0 units SC ACHS [facility]; Protocol Stop: 11/23/20 16:29 Last Admin: 10/24/20 17:46 Dose: Not Given Documented by: [id number] Ketorolac Tromethamine (Ketorolac 30 Mg/Ml Vial) 30 mg IV Q6H [facility] Stop: 10/26/20 07:01 Last Admin: 10/24/20 18:28 Dose: 30 mg Documented by: [id number] Admin: 10/24/20 14:32 Dose: 30 mg Documented by: [id number] Miscellaneous (Scopolamine Check Patch Placement) 1 ea N/A QS [facility]I Stop: 10/27/20 07:59 Last Admin: 10/24/20 16:44 Dose: 1 ea Documented by: [id number] Discontinued Medications Acetaminophen (Acetaminophen 500 Mg Tab) 1,000 mg PO PREOP [facility] Stop: 10/24/20 18:00 Last Admin: 10/24/20 07:27 Dose: 1,000 mg Documented by: [id number] Bupivacaine HCl/Epinephrine Bitart (Bupivacaine/Epinephrine 0.5% Mpf 1:200,000 30 Ml Vial) Confirm Administered Dose 60 ml .ROUTE .[facility] Stop: 10/24/20 08:51 Last Admin: 10/24/20 09:52 Dose: 60 ml Documented by: [id number] Famotidine (Famotidine 20 Mg Tab) 20 mg PO PREOP REJI Stop: 10/24/20 18:00 Last Admin: 10/24/20 07:27 Dose: 20 mg Documented by: [id number] Gabapentin (Gabapentin 900 Mg Dose) 900 mg PO PREOP [facility]I Stop: 10/24/20 18:00 Last Admin: 10/24/20 07:27 Dose: 900 mg Documented by: [id number] Lactated Ringer's (Lr) 1,000 mls @ 15 mls/hr IV .Q24H [facility] Stop: 10/24/20 18:00 Last Infusion: 10/24/20 09:09 Dose: 0 mls/hr Documented by: [id number] Admin: 10/24/20 07:28 Dose: 15 mls/hr Documented by: [id number] Cefazolin Sodium (Ancef 2000mg) 2,000 mg in 15 mls @ 3.75 mls/min IV PREOP REJI; Protocol Stop: 10/24/20 18:00 Last Admin: 10/24/20 09:20 Dose: 3.75 mls/min Documented by: [id number] Tranexamic Acid (Tranexamic Acid / 0.7% Nacl) 1,000 mg in 100 mls @ 600 mls/hr IV TODAY@0600 [facility] Stop: 10/24/20 18:00 Last Infusion: 10/24/20 09:00 Dose: 0 mls/hr Documented by: [id number] Admin: 10/24/20 08:48 Dose: 600 mls/hr Documented by: [id number] Tranexamic Acid (Tranexamic Acid / 0.7% Nacl) 1,000 mg in 100 mls @ 600 mls/hr IV Q6H [facility] Stop: 10/24/20 16:54 Last Infusion: 10/24/20 18:07 Dose: 0 mls/hr Documented by: [id number] Admin: 10/24/20 17:47 Dose: 600 mls/hr Documented by: [id number] Scopolamine (Scopolamine 1 Mg Tdsy) 1 mg TD PREOP REJI Stop: 10/24/20 18:00 Last Admin: 10/24/20 07:28 Dose: 1 mg Documented by: [id number] ECG Additional Comments: ECG reviewed from 10/07/20- Sinus tachycardia Non-specific intra-ventricular conduction delay Nonspecific ST and T wave abnormality Abnormal ECG When compared with ECG of 20-OCT-2008 20:02, QRS duration has increased T wave inversion no longer evident in Inferior leads Confirmed by Lee Pappas ([id number]) on 10/07/2020 12:06:45 PM PG Care Time/CCT Total # of Minutes Spent Total Time Spent with Patient: Total time spent is greater than 50% in coordination of care (as documented) at patient's floor/unit and/or counseling patient: Coding Level of Care Code 07330 Inpt Consult Level 3 Diagnoses Avascular necrosis of bone of right hip M87.051 Alcohol use Z72.89 Hyperlipidemia E78.5 Hyperlipidemia type: unspecified Benign essential hypertension I10 Asthma J45.909 Asthma severity: unspecified severity Asthma persistence: unspecified Asthma complication type: unspecified Allergic rhinitis J30.9 Allergic rhinitis trigger: unspecified Allergic rhinitis seasonality: unspecified ADD (attention deficit disorder) F90.9 Attention deficit-hyperactivity disorder type: unspecified Hyperactivity presence: present Dysmetabolic syndrome X E88.81 (1) Hyperlipidemia Hyperlipidemia type: unspecified Qualified Code(s): E78.5 - Hyperlipidemia, unspecified (2) Asthma Asthma severity: unspecified severity Asthma persistence: unspecified Asthma complication type: unspecified Qualified Code(s): J45.909 - Unspecified asthma, uncomplicated (3) Allergic rhinitis Allergic rhinitis trigger: unspecified Allergic rhinitis seasonality: unspecified Qualified Code(s): J30.9 - Allergic rhinitis, unspecified (4) ADD (attention deficit disorder) Attention deficit-hyperactivity disorder type: unspecified Hyperactivity presence: present Qualified Code(s): F90.9 - Attention-deficit hyperactivity disorder, unspecified type
[2020-10-24] MEDS: DOCUSATE SODIUM 100 MG CAP PO SCH (20:27)
[2020-10-24] MEDS: ASPIRIN 81 MG ECTAB PO SCH (20:27)
[2020-10-24] MEDS: gemfibroziL 600 MG TAB PO SCH (20:31)
[2020-10-24] MEDS ORDERED: SENNA 8.6 MG TAB PO SCH (21:00)
[2020-10-24] MEDS ORDERED: MULTIVITAMIN TAB PO SCH (21:00)
[2020-10-24] MEDS ORDERED: amLODIPine BESYLATE 5 MG TAB PO SCH (21:00)
[2020-10-24] MEDS ORDERED: CETIRIZINE HCL 10 MG TABLET PO SCH (21:00)
[2020-10-24] MEDS ORDERED: allopurinoL 100 MG TAB PO SCH (21:00)
[2020-10-24] MEDS ORDERED: lisinopril 40 MG TAB PO SCH (21:00)
[2020-10-24] MEDS ORDERED: MONTELUKAST SODIUM 10 MG TABLET PO SCH (21:00)
[2020-10-24] MEDS ORDERED: hydroCHLOROthiazide 25 MG TAB PO SCH (21:00)
[2020-10-25] MEDS: Scopolamine CHECK PATCH PLACEMENT SCH ×2 (00:57→07:31)
[2020-10-25] MEDS: ceFAZolin 2000MG 2,000 MG/15 ML SYR IV SCH (00:58)
[2020-10-25] MEDS: KETOROLAC 30 MG/ML VIAL IV SCH ×2 (00:59→06:01)
[2020-10-25] MEDS: SODIUM CHLORIDE 0.9% 1000ML 1,000 ML IV SCH ×2 (01:06→10:43)
[2020-10-25] MEDS: ACETAMINOPHEN 500 MG TAB PO SCH (06:00)
[2020-10-25 06:11] LABS: Basophils # (auto) 0.02 K/uL (0-0.2); Basophils % (auto) 0.2 %; Eosinophils % (auto) 2.4 %; Hematocrit (blood only) 32.6 % (42-52); Hemoglobin 11.3 g/dL (14.0-18.0); Immature Granulocytes # (auto) 0.02 K/uL (0.00-0.02); Immature Granulocytes % (auto) 0.2 %; Lymphocytes # (auto) 1.18 K/uL (1.2-3.4); Lymphocytes % (auto) 14.1 %; Mean Corpuscular Hemoglobin 32.7 pg (25-34); Mean Corpuscular Hgb Conc 34.7 g/dL (32-36); Mean Corpuscular Volume 94.2 fL (80-100); Mean Platelet Volume 10.9 fL (7.4-10.4); Monocytes # (auto) 0.85 K/uL (0.11-0.59); Monocytes % (auto) 10.2 %; Neutrophils % (auto) 72.9 %; Platelet Count 228 K/uL (130-400); RDW Coefficient of Variation 12.8 % (11.5-14.5); RDW Standard Deviation 43.9 fL (36.4-46.3); Red Blood Count 3.46 M/uL (4.7-6.1); White Blood Count 8.37 K/uL (4.8-10.8)
[2020-10-25 06:40] LABS: Estimated Average Glucose 111 mg/dl; Hemoglobin A1C 5.5 % (4.5-5.6)
[2020-10-25 06:51] LABS: Est GFR (African American) 98.7 ml/min; Est GFR (Non-African American) 85.1 ml/min; Potassium 3.9 mmol/L (3.5-5.1)
[2020-10-25 06:52] LABS: BUN Creatinine Ratio 14.4 (10-20)
[2020-10-25] MEDS: ASCORBIC ACID 500 MG TAB PO SCH (07:24)
[2020-10-25] MEDS: ASPIRIN 81 MG ECTAB PO SCH (07:25)
[2020-10-25] MEDS: DOCUSATE SODIUM 100 MG CAP PO SCH (07:25)
[2020-10-25] MEDS: gemfibroziL 600 MG TAB PO SCH (07:25)
[2020-10-25] MEDS ORDERED: lisinopril 40 MG TAB PO STA (08:10)
--- NOTE | 2020-10-25 08:11 | Hospitalist Progress Note ---
Date of Service October 25, 2020 Assessment & Plan (1) Avascular necrosis of bone of right hip: POD1 s/p R KAYLAN with Dr. Brooks on 10/24. EBL 200cc. Fluid 1500cc H/h 11.3/32.6 from hgb 13.5 pre-op -- acute blood loss anemia from surgery and dilutional from IVF PT/OT with plans for OPPT DVT prophylaxis- ASA 81mg BID, SCDs, adriana hose Pain control per primary service No s/sx withdrawal etoh -- has xanax prn if needed but plans for d/c today per primary service Did order his lisinopril 40mg this AM for elevated BP but suspect pain as well (2) Alcohol use: 20 drinks per week liqour AWSS Ordered Librium w primary, xanax available as prn. continued thiamine daily Plans for d/c No s/sx withdrawal currently (3) Hyperlipidemia: Continue gemfibrozil (4) Benign essential hypertension: Continue Amlodipine, HCTZ 25mg PM Resumed DIAMOND this AM as above given elevated BP and stable renal function Continue home meds at d/c (5) Asthma: Continue albuterol (6) Allergic rhinitis: - Continue albuterol - Continue Zyrtec - Continue Singulair (7) ADD (attention deficit disorder): Continue home Ritalin (8) Dysmetabolic syndrome X: As you have done hold his metformin and appropriate sliding scale coverage A1c 5.5 Dispo: discharge planned for today per primary service with OPPT Thank you for allowing hospitalist to participate int he care of Mr Bruno. Hospitalist sign off at this time. Please call with questions/concerns. Admission and Anticipated Discharge Date Admission Date: October 24, 2020 Subjective Patient evaluated this morning, was watching a show on his computer in bed. Doing well, thankful for wonderful care while he has been in the hospital. Eating/drinking no issue. Passing lots of gas. Discussed elevated BP and given lisinopril this morning. No headache, visual changes. Pain increased but tolerable with ordered medications. No fever, chills, headache, blurred vision, chest pain, shortness of breath, abdominal pain nausea or vomiting. Worked with both PT/OT and plans on d/c today with OPPT. Review of Systems Review of Systems: All systems reviewed & are unremarkable except as noted in HPI & below Physical Exam Physical Exam: PHYSICAL EXAM: General: awake, alert, no apparent distress, watching show on laptop in bed Head: Normocephalic, atraumatic ENT: PERRL, EOMI, no pharyngeal exudate, mucous membranes moist Neuro: AAO x 3, has some nervous tics, speech clear and appropriate, strength intact bilaterally 5/5, sensation intact and equal all extremities and dermatomes, no pronator drift Chest: equal rise and fall of the chest, no accessory muscle use, no heaves or thrills, Clear to auscultation, on room air Cardiac: Regular rate and rhythm, S1S2, skin warm dry, cap refill <3 seconds, peripheral pulses +2 no JVD, no murmur,, no edema GI: NABS x 4 quadrants, soft, nontender to palpation, no rebound, guarding or tenderness : Basilio to gravity, no pain, no CVA tenderness, Extremities: Normal inspection, no peripheral edema or erythema, calfs nontender to palpation, sensation intact through out. Right hip with foam tape dressing. minimal tenderness to palpation lateral distal area of dressing. NVI pulses strong bilaterally calves non-tender dorsiflexion/plantar flexion equal b/l LE Psych: Normal mood and affect Skin: no rash or erythema Results & Data Results & Data ([facility]) Vital Signs (Past 12 Hours) Vital Signs Temp Pulse Resp BP Pulse Ox Pulse Ox 10/25/20 07:50 36.9 C 87 16 142/94 H 91 10/25/20 05:45 18 95 10/25/20 04:45 20 92 10/25/20 03:45 18 94 10/25/20 03:00 36.8 C 84 18 143/93 H 96 10/25/20 02:45 18 96 10/25/20 01:45 18 95 10/25/20 00:45 18 95 10/25/20 00:00 95 10/24/20 23:45 18 92 10/24/20 23:00 36.9 C 98 H 18 129/87 97 10/24/20 22:45 18 97 10/24/20 21:45 18 93 10/24/20 20:52 20 94 Laboratory Results 10/25/20 10/25/20 10/25/20 Range/Units 08:05 05:28 05:28 WBC (4.8-10.8) K/uL RBC (4.7-6.1) M/uL Hgb (14.0-18.0) g/dL Hct (42-52) % MCV (80-100) fL MCH (25-34) pg MCHC (32-36) g/dL RDW Std Deviation (36.4-46.3) fL RDW Coeff of Jessica (11.5-14.5) % Plt Count (130-400) K/uL MPV (7.4-10.4) fL Immature Gran % (Auto) % Neut % (Auto) % Lymph % (Auto) % [place] % (Auto) % Eos % (Auto) % Baso % (Auto) % Neut # (Auto) (1.4-6.5) K/uL Lymph # (Auto) (1.2-3.4) K/uL [place] # (Auto) (0.11-0.59) K/uL Eos # (Auto) (0-0.5) K/uL Baso # (Auto) (0-0.2) K/uL Immature Gran # (Auto) (0.00-0.02) K/uL Sodium 137 (136-145) mmol/L Potassium 3.9 (3.5-5.1) mmol/L Chloride 104 (98-107) mmol/L Carbon Dioxide 25 (21-32) mmol/L Anion Gap 8.0 (3-11) BUN 15 (7-18) mg/dl Creatinine 1.01 (0.6-1.4) mg/dl Est Cr Clr Drug Dosing 106.0 ml/min Est GFR ( Amer) 98.7 ml/min Est GFR (Non-Af Amer) 85.1 ml/min BUN/Creatinine Ratio 14.4 (10-20) Glucose 110 H (70-99) mg/dl POC Glucose 125 H (70-99) mg/dl Estimat Average Glucose 111 mg/dl Hemoglobin A1c 5.5 (4.5-5.6) % Calcium 8.0 L (8.5-10.1) mg/dl 10/25/20 10/24/20 10/24/20 Range/Units 05:28 21:14 17:10 WBC 8.37 (4.8-10.8) K/uL RBC 3.46 L (4.7-6.1) M/uL Hgb 11.3 L (14.0-18.0) g/dL Hct 32.6 L (42-52) % MCV 94.2 (80-100) fL MCH 32.7 (25-34) pg MCHC 34.7 (32-36) g/dL RDW Std Deviation 43.9 (36.4-46.3) fL RDW Coeff of Jessica 12.8 (11.5-14.5) % Plt Count 228 (130-400) K/uL MPV 10.9 H (7.4-10.4) fL Immature Gran % (Auto) 0.2 % Neut % (Auto) 72.9 % Lymph % (Auto) 14.1 % [place] % (Auto) 10.2 % Eos % (Auto) 2.4 % Baso % (Auto) 0.2 % Neut # (Auto) 6.10 (1.4-6.5) K/uL Lymph # (Auto) 1.18 L (1.2-3.4) K/uL [place] # (Auto) 0.85 H (0.11-0.59) K/uL Eos # (Auto) 0.20 (0-0.5) K/uL Baso # (Auto) 0.02 (0-0.2) K/uL Immature Gran # (Auto) 0.02 (0.00-0.02) K/uL Sodium (136-145) mmol/L Potassium (3.5-5.1) mmol/L Chloride (98-107) mmol/L Carbon Dioxide (21-32) mmol/L Anion Gap (3-11) BUN (7-18) mg/dl Creatinine (0.6-1.4) mg/dl Est Cr Clr Drug Dosing ml/min Est GFR ( Amer) ml/min Est GFR (Non-Af Amer) ml/min BUN/Creatinine Ratio (10-20) Glucose (70-99) mg/dl POC Glucose 126 H 115 H (70-99) mg/dl Estimat Average Glucose mg/dl Hemoglobin A1c (4.5-5.6) % Calcium (8.5-10.1) mg/dl 10/24/20 Range/Units 12:15 WBC (4.8-10.8) K/uL RBC (4.7-6.1) M/uL Hgb (14.0-18.0) g/dL Hct (42-52) % MCV (80-100) fL MCH (25-34) pg MCHC (32-36) g/dL RDW Std Deviation (36.4-46.3) fL RDW Coeff of Jessica (11.5-14.5) % Plt Count (130-400) K/uL MPV (7.4-10.4) fL Immature Gran % (Auto) % Neut % (Auto) % Lymph % (Auto) % [place] % (Auto) % Eos % (Auto) % Baso % (Auto) % Neut # (Auto) (1.4-6.5) K/uL Lymph # (Auto) (1.2-3.4) K/uL [place] # (Auto) (0.11-0.59) K/uL Eos # (Auto) (0-0.5) K/uL Baso # (Auto) (0-0.2) K/uL Immature Gran # (Auto) (0.00-0.02) K/uL Sodium (136-145) mmol/L Potassium (3.5-5.1) mmol/L Chloride (98-107) mmol/L Carbon Dioxide (21-32) mmol/L Anion Gap (3-11) BUN (7-18) mg/dl Creatinine (0.6-1.4) mg/dl Est Cr Clr Drug Dosing ml/min Est GFR ( Amer) ml/min Est GFR (Non-Af Amer) ml/min BUN/Creatinine Ratio (10-20) Glucose (70-99) mg/dl POC Glucose 109 H (70-99) mg/dl Estimat Average Glucose mg/dl Hemoglobin A1c (4.5-5.6) % Calcium (8.5-10.1) mg/dl PG Care Time/CCT Total # of Minutes Spent Total Time Spent with Patient: Total time spent is greater than 50% in coordination of care (as documented) at patient's floor/unit and/or counseling patient: Coding Level of Care Code 14992 Subseq Obs Care Lvl 2 Diagnoses Avascular necrosis of bone of right hip M87.051 Alcohol use Z72.89 Hyperlipidemia E78.5 Hyperlipidemia type: unspecified Benign essential hypertension I10 Asthma J45.909 Asthma severity: unspecified severity Asthma persistence: unspecified Asthma complication type: unspecified Allergic rhinitis J30.9 Allergic rhinitis trigger: unspecified Allergic rhinitis seasonality: unspecified ADD (attention deficit disorder) F90.9 Hyperactivity presence: present Attention deficit-hyperactivity disorder type: unspecified Dysmetabolic syndrome X E88.81 (1) Hyperlipidemia Hyperlipidemia type: unspecified Qualified Code(s): E78.5 - Hyperlipidemia, unspecified (2) Asthma Asthma severity: unspecified severity Asthma persistence: unspecified Asthma complication type: unspecified Qualified Code(s): J45.909 - Unspecified asthma, uncomplicated (3) Allergic rhinitis Allergic rhinitis trigger: unspecified Allergic rhinitis seasonality: unspecified Qualified Code(s): J30.9 - Allergic rhinitis, unspecified (4) ADD (attention deficit disorder) Hyperactivity presence: present Attention deficit-hyperactivity disorder type: unspecified Qualified Code(s): F90.9 - Attention-deficit hyperactivity disorder, unspecified type
--- NOTE | 2020-10-25 08:26 | Progress Notes ---
DATE: 10/25/2020 SUBJECTIVE: A 50-year-old gentleman postop day #1 from a right hip replacement. He is doing pretty well. Pain is controlled. No chest pain or shortness of breath. He did get up and walk some and seemed to do okay. OBJECTIVE: VITAL SIGNS: Temperature 36.8. Vital signs stable. GENERAL: Shows a pleasant, middle-aged male. He is sitting up in bed and looks pretty comfortable this morning. LUNGS: Clear to auscultation. HEART: Has a regular rate and rhythm. ABDOMEN: Soft, nontender, nondistended. EXTREMITIES: Grossly neurovascularly intact except as follows: Examination of the right hip and leg reveals the dressing to be clean, dry, and intact. Thigh is soft and supple. The leg lengths are equal. He is neurologically intact. He can dorsiflex and plantarflex his foot appropriately. LABORATORY DATA: Hemoglobin 11.3. Hematocrit 32.6. Electrolytes are stable. ASSESSMENT: A 50-year-old gentleman postoperative day #1 from right hip replacement, doing pretty well. Pain is controlled. Hip is located. He is neurologically intact. PLAN: 1. DVT prophylaxis including thigh-high TEDs, SCDs, and aspirin twice a day. 2. PT/OT. Weight bear as tolerated. Right total hip protocol. 3. Pain control, doing okay with current pain regimen. 4. Deep venous thrombosis prophylaxis. 5. He is on prophylaxis for potential alcohol withdrawal. 6. Disposition: We are going to see how he does in therapy today. He is going to be discharged with home health once medically stable and getting around safely and pain controlled.
[2020-10-25] MEDS ORDERED: FOLIC ACID 1 MG TAB PO SCH (09:00)
[2020-10-25] MEDS ORDERED: MULTIVITAMIN TAB PO SCH (09:00)
[2020-10-25] MEDS ORDERED: metFORMIN HCL 500 MG TAB PO SCH (09:00)
[2020-10-25] MEDS ORDERED: THIAMINE HCL 100 MG TAB PO SCH (09:00)
[2020-10-25] MEDS ORDERED: ALPRAZolam 0.5 MG TABLET PO PRN (09:15)
[2020-10-25] MEDS ORDERED: chlordiazePOXIDE HCl 25 MG CAP PO PRN (09:15)
[2020-10-25] MEDS ORDERED: MELATONIN 3 MG TAB PO PRN (09:15)
[2020-10-25] MEDS ORDERED: AMPHETAMINE ASP/SULF/DEXTRAMPH 20 MG TAB PO SCH (09:15)
[2020-10-25] MEDS ORDERED: diphenhydrAMINE Capsule 25 MG CAP PO PRN (09:16)
[2020-10-25] MEDS ORDERED: traMADol HCL 50 MG TABLET PO PRN (09:16)
[2020-10-25] MEDS ORDERED: ONDANSETRON INJ 2 MG/ML 2 ML VIAL IV PRN (09:16)
[2020-10-25] MEDS ORDERED: NALOXONE HCL 0.4 MG/1 ML VIAL/CARP IV PRN (09:16)
[2020-10-25] MEDS ORDERED: HYDROmorphone INJ 0.5 MG/0.5 ML SYR IV PRN (09:16)
[2020-10-25] MEDS: INSULIN ASPART 100 UNITS/ML 3 ML PEN SC SCH ×2 (09:44→13:36)
[2020-10-25] MEDS ORDERED: hydrALAZINE HCL 20 MG/ML VIAL IV PRN (10:35)
--- NOTE | 2020-10-29 06:33 | Discharge Summary ---
Date of Service October 29, 2020 Discharge Data Consultations 10/24/20 17:34 Consult Hospitalist Routine Procedures Performed Operation Date: 10/24/20 08:50 Actual Procedures p Right Total Hip Arthroplasty--Uncemented(Right) - Abner Brooks MD Hospital Course (1) Status post total hip replacement, right: This patient is a 50 year old admitted on 10/24/20 and underwent total hip arthroplasty. He tolerated the procedure well and there were no complications. Transferred to the PACU post op and later to the orthopedic floor for further care. He was given ancef for antibiotic prophylaxis. He was also given SOMMER stockings, SCDs, and aspirin for DVT prophylaxis. Hemoglobin, hematocrit, and vital signs were monitored during his hospital stay and remained stable. Did not require any blood transfusions. There were no complications during his hospital stay. By post op day #1 the patient was tolerating a diabetic diet, pain was reasonably controlled with oral pain medicine, and he was participating in physical therapy. On post op day #1 the patient was discharged home and set up with home health care. He was given printed discharge instructions including prescriptions for extra strength tylenol, aspirin, and tramadol. Continue physical therapy, weight bearing as tolerated. Continue SOMMER stockings. Follow up approximately 2 weeks post op or sooner if there are problems or concerns. Coding Level of Care Code None Diagnoses Status post total hip replacement, right Z96.641
== END 2020-10-25 14:10 | disposition home health service (06) ==
LOC: 3E 06:07 → ASU 06:07
DX: E66.9 Obesity, unspecified; M16.11 Unilateral primary osteoarthritis, right hip; E78.5 Hyperlipidemia, unspecified; E78.00 Pure hypercholesterolemia, unspecified; J45.909 Unspecified asthma, uncomplicated; M87.9 Osteonecrosis, unspecified; I10 Essential (primary) hypertension; E11.9 Type 2 diabetes mellitus without complications; Z87.891 Personal history of nicotine dependence

== ENCOUNTER 2021-06-24 00:38 | Observation (INO) ==
--- NOTE | 2021-06-24 00:55 | Emergency Department Note ---
Impression & Plan Acute kidney injury, Acute electrocardiogram changes, Acute hypotension Admit to the [facility] service ED Provider Note NAME: GRIS KAUFFMAN AGE: 51 SEX: M ARRIVES VIA: Walk-In INFORMANT: Patient ED PROVIDER(S): Anais Dial DO CHIEF COMPLAINT: Dizziness PLAN: Disposition: Admit to the [facility] service Condition: Stable MEDICAL DECISION MAKING: The patient was at work tonight when he felt extremely weak upon standing and found his blood pressure to be low and his heart rate to be high around 10:30 PM this evening. Triage Nursing notes reviewed and agree with them. Vital Signs: reviewed and remarkable for hypotension and tachycardia Differential diagnosis: Dehydration, cardiac dysrhythmia, STEMI, medication side effects, JONNY ER treatment provided: IV normal saline bolus Diagnostics interpreted by me: ECG: Sinus tachycardia at 112 with T wave inversions in leads I and aVL. This is a new finding comparison to a previous EKG from 09/2020. There is some concern for ischemia. There is no ectopy. Cardiac Monitoring: Normal sinus him at 104 Laboratory studies: See below Imaging studies: As per my interpretation Chest x-ray: No acute pulmonary infiltrates or consolidations. HPI: 51/M arrives for evaluation of dizziness and diaphoresis. Patient was at work tonight when he suddenly began to feel dizzy and lightheaded. He then st arted to sweat. The patient left work and went home to take his vital signs. He found his blood pressure was low and his heart rate was high. Patient admits that he did not do much over the past 36 hours but laying in bed and sleep. He just felt lazy. He did get up to have meals and go to the bathroom. Patient states that his systolic blood pressures usually in the 90s as he is on antihypertensive medications. ROS: See above HPI for pertinent positives & negatives. A total of 10 systems reviewed and were otherwise negative. PAST MEDICAL HISTORY:See Below PAST SURGICAL HISTORY:See Below FAMILY HISTORY:See Below SOCIAL HISTORY:See Below HOME MEDICATIONS:See Below ALLERGIES:See Below VITALS:See Below PHYSICAL EXAMINATION: HEENT: Head - normocephalic and atraumatic. Pupils are equal, round, and reactive to light. Extraocular eye muscles are intact, and sclera are anicteric. Nose - moist nasal mucosa without discharge. Mouth - moist buccal mucosa. Oropharynx is nonerythematous and there is no tonsillar exudate or edema noted. Neck: Supple; no JVD or cervical lymphadenopathy Heart: Regular rate and rhythm. There is a normal S1 and S2 with no murmurs, clicks, or gallops appreciated. Lungs: Clear to auscultation bilaterally with no wheezes, rales, or rhonchi. Abdomen: Soft, completely nontender, nondistended, with good bowel sounds. There are no palpable pulsatile masses or hepatosplenomegaly. There is no guarding, rigidity, or rebound noted. Extremities: No evidence of cyanosis, clubbing, or edema. There are easily palpable peripheral pulses. Skin: Pale, warm and dry with good turgor and no rashes. ED COURSE: Times/Reassessments: 0050: The patient was evaluated in room C8. An order was placed for continuous cardiac monitoring. The patient was in a sinus tachycardia at 104. The patient's blood pressure came up to 102 systolically. An IV lock was initiated and the patient will be bolused with a liter of normal saline solution. A twelve-lead EKG was obtained. This was matt red to a previous EKG and does show some ischemic changes. A portable chest x-ray was performed. The patient was started on a normal saline drip. I reviewed the results of the laboratory studies and x-ray with the patient. I discussed the case with the [facility] hospitalist and they will evaluate for further management. Anais Dial DO Past Med/Surg History Medical History ADHD Asthma Avascular necrosis of bone of right hip Diabetes mellitus, type 2 Gout Hyperlipidemia Hypertension Insomnia Kidney stones Lumbar spondylosis Surgical History History of colonoscopy History of left knee surgery History of open reduction and internal fixation (ORIF) procedure History of tonsillectomy Status post right hip replacement Family History Other Adopted Family history not known due to adoption Social History Smoking Status: Former smoker Age Started Using Tobacco: 14; Age Quit Using Tobacco: 46; packs per day: 0.5; Second Hand Exposure: No; Hx Alcohol Use: Yes Alcohol type: hard liquor Alcohol Intake Frequency: 4 or More x per/Week Hx Substance Use: No Preferred Language: German Communication Ability: Effective Visual Impairment: No Limitations Hearing Ability: Normal Environmental Services Associate Required: No Beliefs That Will Affect Care: None marital status: single Current Living Situation: Alone current occupational status: employed current occupation: [employer] Machine Operator Feels Safe at Home: Yes Childhood Exposure to Second-Hand Smoke: No caffeine: Yes during the past year weight has: remained stable Dental Care, Regularly: Yes Physical Activity Frequency: 5-6 Times per Week Seatbelt Use: always Sunscreen Use: Yes Assistive Devices: None Allergies Allergies Allergy/AdvReac Type Severity Reaction Status Date / Time No Known Allergies Allergy Unknown Verified 06/24/21 01:16 Home Meds Home Medications Medication Instructions Recorded Confirmed albuterol sulfate 90 mcg/actuation 1 puff INHALATION Q6 PRN #1 gm 03/05/19 06/24/21 aerosol inhaler cetirizine 10 mg tablet (Zyrtec) 10 mg PO QPM 03/05/19 06/24/21 diphenhydramine HCl 25 mg tablet 25 - 100 mg PO HS PRN 10/03/20 06/24/21 (Benadryl Allergy) melatonin 10 mg tablet 10 mg PO HS PRN 10/03/20 06/24/21 multivitamin 1 tab PO QPM 10/03/20 06/24/21 amoxicillin 500 mg tablet 2,000 mg PO DIRECTED PRN 06/24/21 06/24/21 atorvastatin 10 mg tablet 10 mg PO QPM 06/24/21 06/24/21 benzonatate 100 mg capsule 100 mg PO TID PRN 06/24/21 06/24/21 meloxicam 7.5 mg tablet (Mobic) 7.5 mg PO BID PRN 06/24/21 06/24/21 Previous Rx's Medication Instructions Recorded metformin 1,000 mg tablet 1,000 mg PO BID #180 tab 07/01/20 hydrochlorothiazide 25 mg tablet 25 mg PO QPM #90 tab 12/03/20 lisinopril 40 mg tablet 40 mg PO QPM #90 tab 01/02/21 codeine 10 mg-guaifenesin 200 mg/5 5 ml PO Q6H PRN #100 ml 03/20/21 mL oral liquid allopurinol 100 mg tablet 100 mg PO QPM #90 tab 04/15/21 montelukast 10 mg tablet 10 mg PO QPM #90 tab 04/15/21 alprazolam 0.5 mg tablet 0.5 mg PO DAILY PRN #30 tab 05/27/21 dextroamphetamine-amphetamine 20 20 mg PO BID #60 tab 05/27/21 mg tablet (Adderall) gemfibrozil 600 mg tablet 600 mg PO BID #180 tab 05/28/21 Results & Data (ED) Vital Signs Vital Signs - 24 hr 06/24/21 00:47 06/24/21 01:12 06/24/21 01:30 Temperature 36 C L Temperature Source Temporal Artery Scan Pulse Rate 89 115 H Pulse Rhythm Regular Pulse Strength Normal Respiratory Rate 18 18 Respiratory Effort / Characteristics Non-Labored Spontaneous Respiratory Depth Normal Respiratory Pattern Regular Blood Pressure 89/63 L 108/74 Blood Pressure Mean 71 85 Blood Pressure Position Sitting Pulse Oximetry 98 94 93 Oxygen Delivery Method Room Air Room Air Sepsis Recent Fever Within 48 Hours No Sepsis New/Unexplained Change in Mental Status N/A Sepsis Action Taken by Nursing No Action Required 06/24/21 01:45 06/24/21 02:15 06/24/21 02:30 Temperature Temperature Source Pulse Rate 115 H 105 H 105 H Pulse Rhythm Pulse Strength Respiratory Rate 18 20 20 Respiratory Effort / Characteristics Respiratory Depth Respiratory Pattern Blood Pressure 102/77 114/79 112/85 Blood Pressure Mean 85 90 94 Blood Pressure Position Pulse Oximetry 95 98 98 Oxygen Delivery Method Sepsis Recent Fever Within 48 Hours Sepsis New/Unexplained Change in Mental Status Sepsis Action Taken by Nursing 06/24/21 02:45 06/24/21 03:00 06/24/21 03:15 Temperature Temperature Source Pulse Rate 105 H 103 H 107 H Pulse Rhythm Pulse Strength Respiratory Rate 18 18 18 Respiratory Effort / Characteristics Respiratory Depth Respiratory Pattern Blood Pressure 108/84 122/77 99/82 L Blood Pressure Mean 92 92 87 Blood Pressure Position Pulse Oximetry 98 98 98 Oxygen Delivery Method Sepsis Recent Fever Within 48 Hours Sepsis New/Unexplained Change in Mental Status Sepsis Action Taken by Nursing 06/24/21 03:30 06/24/21 03:45 Temperature Temperature Source Pulse Rate 105 H 101 H Pulse Rhythm Pulse Strength Respiratory Rate 18 18 Respiratory Effort / Characteristics Respiratory Depth Respiratory Pattern Blood Pressure 133/70 102/78 Blood Pressure Mean 91 86 Blood Pressure Position Pulse Oximetry 98 98 Oxygen Delivery Method Sepsis Recent Fever Within 48 Hours Sepsis New/Unexplained Change in Mental Status Sepsis Action Taken by Nursing Laboratory Data Result diagrams: 06/24/21 01:00 06/24/21 01:00 Lab Results 06/24/21 06/24/21 06/24/21 Range/Units 01:00 01:00 02:00 WBC 15.93 H (4.8-10.8) K/uL RBC 5.03 (4.7-6.1) M/uL Hgb 16.5 (14.0-18.0) g/dL Hct 46.9 (42-52) % MCV 93.2 (80-100) fL MCH 32.8 (25-34) pg MCHC 35.2 (32-36) g/dL RDW Std Deviation 43.3 (36.4-46.3) fL RDW Coeff of Jessica 12.8 (11.5-14.5) % Plt Count 335 (130-400) K/uL MPV 11.7 H (7.4-10.4) fL Immature Gran % (Auto) 0.5 % Neut % (Auto) 81.9 % Lymph % (Auto) 10.0 % Carlton % (Auto) 7.2 % Eos % (Auto) 0.3 % Baso % (Auto) 0.1 % Neut # (Auto) 13.06 H (1.4-6.5) K/uL Lymph # (Auto) 1.59 (1.2-3.4) K/uL Carlton # (Auto) 1.14 H (0.11-0.59) K/uL Eos # (Auto) 0.04 (0-0.5) K/uL Baso # (Auto) 0.02 (0-0.2) K/uL Immature Gran # (Auto) 0.08 H (0.00-0.02) K/uL Sodium 136 (136-145) mmol/L Potassium 4.0 (3.5-5.1) mmol/L Chloride 99 (98-107) mmol/L Carbon Dioxide 22 (21-32) mmol/L Anion Gap 15 H (3-11) BUN 42 H (6-23) mg/dl Creatinine 2.62 H (0.6-1.4) mg/dl Est Cr Clr Drug Dosing 39.4 ml/min Est GFR ( Amer) 30.9 ml/min Est GFR (Non-Af Amer) 26.7 ml/min BUN/Creatinine Ratio 16.0 (10-20) Glucose 153 H (70-99(Fasting)) mg/dl Calcium 10.9 H (8.5-10.1) mg/dl Total Bilirubin 0.5 (0.2-1.0) mg/dl AST 29 (13-39) U/L ALT 28 (7-52) U/L Alkaline Phosphatase 81 (34-104) U/L Troponin I < 0.03 (0-0.04) ng/ml Total Protein 8.3 (6.0-8.3) gm/dl Albumin 5.1 H (3.4-5.0) gm/dl Globulin 3.2 (2.5-4.0) gm/dl Albumin/Globulin Ratio 1.6 (0.9-2) Lipase 41 (11-82) U/L SARS-CoV-2, RNA, NAAT NEGATIVE (NEGATIVE) Administered Medications Sodium Chloride (Nss) 500 mls @ 125 mls/hr IV .Q4H REJI Stop: 07/24/21 01:59 Last Admin: 06/24/21 02:00 Dose: 125 mls/hr Documented by: [id number] Discontinued Medications Sodium Chloride (Nss 1000ml) 1,000 mls @ 999 mls/hr IV .Q1H1M ONE Stop: 06/24/21 02:09 Last Infusion: 06/24/21 02:14 Dose: 0 mls/hr Documented by: [id number] Admin: 06/24/21 01:13 Dose: 999 mls/hr Documented by: [id number] Discharge Plan Visit Data Chief Complaint: Cardiac Assessment Stated Complaint: LIGHTHEADED,NAUSEA,NOT FEELING WELL ED Provider: Anais Dial Discharge Problem: Acute kidney injury, Acute electrocardiogram changes, Acute hypotension Forms Stand Alone Forms: [employer] Prescriptions Prescriptions: No Action hydrochlorothiazide 25 mg tablet 25 mg PO QPM Qty: 90 RF: 3 lisinopril 40 mg tablet 40 mg PO QPM Qty: 90 RF: 1 allopurinol 100 mg tablet 100 mg PO QPM Qty: 90 RF: 1 montelukast 10 mg tablet 10 mg PO QPM Qty: 90 RF: 1 dextroamphetamine-amphetamine [Adderall] 20 mg tablet 20 mg PO BID Qty: 60 RF: 0 alprazolam 0.5 mg tablet 0.5 mg PO DAILY PRN (Reason: anxiety) Qty: 30 RF: 2 gemfibrozil 600 mg tablet 600 mg PO BID Qty: 180 RF: 1 cetirizine [Zyrtec] 10 mg tablet 10 mg PO QPM RF: 0 albuterol sulfate 90 mcg/actuation HFA aerosol inhaler 1 puff inhalation Q6 PRN (Reason: Shortness Of Breath) Qty: 1 RF: 0 metformin 1,000 mg tablet 1,000 mg PO BID Qty: 180 RF: 3 codeine-guaifenesin 10-200 mg/5 mL liquid 5 ml PO Q6H PRN (Reason: cough) Qty: 100 RF: 0 multivitamin Tablet 1 tab PO QPM RF: 0 diphenhydramine HCl [Benadryl Allergy] 25 mg Tablet 25 - 100 mg PO HS PRN (Reason: Sleep) RF: 0 melatonin 10 mg Tablet 10 mg PO HS PRN (Reason: Sleep) RF: 0 benzonatate [Tessalon Perles] 100 mg Capsule 100 mg PO TID PRN (Reason: Cough) RF: 0 atorvastatin 10 mg tablet 10 mg PO QPM RF: 0 amoxicillin 500 mg tablet 2,000 mg PO DIRECTED PRN (Reason: PRIOR TO DENTAL APPOINTMENTS) RF: 0 meloxicam [Mobic] 7.5 mg tablet 7.5 mg PO BID PRN (Reason: Pain) RF: 0 Referrals Referrals: Willian Leon III, CRNP [Primary Care Provider] -
[2021-06-24] MEDS ORDERED: SODIUM CHLORIDE 0.9% 1000ML 1,000 ML IV ONE (01:09)
[2021-06-24 01:23] LABS: Basophils # (auto) 0.02 K/uL (0-0.2); Basophils % (auto) 0.1 %; Eosinophils # (auto) 0.04 K/uL (0-0.5); Eosinophils % (auto) 0.3 %; Hematocrit (blood only) 46.9 % (42-52); Hemoglobin 16.5 g/dL (14.0-18.0); Immature Granulocytes # (auto) 0.08 K/uL (0.00-0.02); Immature Granulocytes % (auto) 0.5 %; Lymphocytes # (auto) 1.59 K/uL (1.2-3.4); Mean Corpuscular Hemoglobin 32.8 pg (25-34); Mean Corpuscular Hgb Conc 35.2 g/dL (32-36); Mean Corpuscular Volume 93.2 fL (80-100); Mean Platelet Volume 11.7 fL (7.4-10.4); Monocytes # (auto) 1.14 K/uL (0.11-0.59); Monocytes % (auto) 7.2 %; Neutrophils # (auto) 13.06 K/uL (1.4-6.5); Neutrophils % (auto) 81.9 %; Platelet Count 335 K/uL (130-400); RDW Coefficient of Variation 12.8 % (11.5-14.5); RDW Standard Deviation 43.3 fL (36.4-46.3); Red Blood Count 5.03 M/uL (4.7-6.1); White Blood Count 15.93 K/uL (4.8-10.8)
[2021-06-24 01:36] LABS: Troponin I < 0.03 ng/ml (0-0.04)
[2021-06-24 01:41] LABS: Alanine Aminotransferase 28 U/L (7-52); Albumin Globulin Ratio 1.6 (0.9-2); Albumin Level 5.1 gm/dl (3.4-5.0); Alkaline Phosphatase 81 U/L (34-104); Anion Gap 15 (3-11); Aspartate Aminotransferase 29 U/L (13-39); Bilirubin,Total 0.5 mg/dl (0.2-1.0); Blood Urea Nitrogen 42 mg/dl (6-23); Calcium 10.9 mg/dl (8.5-10.1); Carbon Dioxide 22 mmol/L (21-32); Chloride 99 mmol/L (98-107); Creatinine Clr Calc Pharmacy 39.4 ml/min; Est GFR (African American) 30.9 ml/min; Est GFR (Non-African American) 26.7 ml/min; Globulin 3.2 gm/dl (2.5-4.0); Glucose 153 mg/dl (70-99(Fasting)); Lipase 41 U/L (11-82); Sodium 136 mmol/L (136-145); Total Protein 8.3 gm/dl (6.0-8.3)
[2021-06-24] MEDS: SODIUM CHLORIDE 0.9% 500 ML IV SCH ×2 (02:00→06:07)
[2021-06-24] MEDS ORDERED: ACETAMINOPHEN 325 MG TAB PO PRN (03:04)
--- NOTE | 2021-06-24 03:17 | History & Physical Report ---
Date of Service June 24, 2021 Assessment & Plan (1) Benign essential hypertension: Plan: This is a 51-year-old man with a history of hypertension, hyperlipidemia, asthma, anxiety, ADD, type 2 diabetes who presented to [facility] for evaluation of lightheadedness in the setting of hypotension, tachycardia, and JONNY. Hypotension -- with tachycardia, responsive to fluid resuscitation In the setting of sudden-onset orthostatic symptoms, diaphoresis, nausea; no reported chest pain, shortness of breath, loss of consciousness, focal neurologic deficits Work-up as follows: White count appreciated to 16, neutrophil predominance JONNY, likely prerenal, outlined as below Troponin undetectably low Nonspecific T wave inversions in leads I, aVL Significant improvement in symptoms following 1 L NSS bolus At this time, primarily suspect that patient symptoms were related to hypovolemia/dehydration -- patient reports decreased H2O intake over preceding days, 4 drink/night, and has two ongoing antiHTNs and has prerenal-appearing JONNY There have been no observed arrhythmias since patient's arrival. Primarily suspect that the noncontiguous T wave inversions are secondary to rate. There are no findings consistent with heart failure. Atypical ACS considered a possibility, but less likely. There are no focal neurologic deficits. Elevated white count noted, however, suspect stress demargination in the setting of previous hypotension that was responsive to fluids; no signs or symptoms concerning with active infection. No findings c/w anemia. Recent history of COVID-19 approximately 1 month ago noted; sudden onset of post-COVID dysautonomia/POTS would be atypical, but can check orthostatics Check troponin in 6 hours to rule out ACS Continue hydration NSS @ 125cc/hr Check urine studies Hold home antihypertensives Monitor on telemetry JONNY On chart review, normal creatinine appears to be around 1 Upon arrival, creatinine 2.62/BUN 42 Continue hydration, as above Hold home antihypertensives, including hydrochlorothiazide and lisinopril; also hold metformin T wave inversions T wave inversions appreciated in leads I and aVL, which appear to be new compared to prior EKGs Suspect secondary to rate, however, r/o ACS as above Recheck troponin Monitor on telemetry, recheck EKG in a.m. Anxiety/mood disorder/ADD Continue home medications Hyperlipidemia Continue atorvastatin T2DM -- last A1c 5.5% in 10/2020 Hold home Metformin Check A1c in a.m.; pending result, can consider adding on AC at bedtime glucose checks and bolus insulin Alcohol use Patient reports consuming 4 "standard drinks" daily on a regular basis No history of alcohol withdrawal noted at this time. Monitor for symptoms, consider AWSS if indicated. Code: FULL CODE Dispo: MS/telemetry Diet: Regular PPx: SCDs (2) Anxiety disorder: (3) Asthma: (4) Hyperlipidemia: (5) Alcohol use: (6) Hypotension: History of Present Illness Primary Care Provider: Willian Leon III, DALY This is a 51-year-old man with a history of hypertension, hyperlipidemia, asthma, anxiety, ADD, type 2 diabetes who presented to [facility] for evaluation of lightheadedness. 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 He said that when he was lifting a bottles from lower shelf, he would start feeling lightheaded when standing up. He also noticed that this was becoming more frequently as the night went on. He felt diaphoretic. He denied any chest pain or palpitations throughout this time. Denied any shortness of breath. He did say he felt intermittently nauseous. He did not pass out. Patient said this is intermittently happened in the past when his blood pressure medications were being changed from, but has not happened in several years. He has not had any recent changes in his medications. He does say that he has been drinking less water than usual. He denies any changes in appetite or bowel movements. Denies any weakness in his arms or his legs, numbness or tingling. He denies any recent illnesses, other than diagnosed with Covid approximately 1 month ago when he was asymptomatic. He denies any recent nausea or vomiting. He denies any recent cough, fevers, chills. Socially, he lives locally by himself. He endorses approximately 4 "standard drinks" per night, unchanged recently. Denies any recent tobacco use. Denies any use of recreational drugs at present; does endorse h/o using in his 30s. Upon arrival in the ED, patient was found to have a blood pressure of 89/63 and heart rate of 90. His heart rate subsequently increased to low 110s. He was afebrile. Labs were significant for leukocytosis to 16 with neutrophilic predominance, JONNY (BUN 42/creatinine 2.62), elevated calcium 10.9. Chest x-ray did not reveal any focal abnormalities on my read. Urine studies pending. EKG did demonstrates previously seen intraventricular conduction delay, as well as T wave inversions in leads I and aVL, which appears to be new from prior EKG. He was given 1 L of normal saline and reported significant improvement in his symptoms. He was then started on normal saline drip. Allergies Allergy/AdvReac Type Severity Reaction Status Date / Time No Known Allergies Allergy Unknown Verified 06/24/21 01:16 Home Medications Medication Instructions Recorded Confirmed Type albuterol sulfate 90 mcg/actuation 1 puff INHALATION Q6 PRN #1 gm 03/05/19 06/24/21 History aerosol inhaler cetirizine 10 mg tablet (Zyrtec) 10 mg PO QPM 03/05/19 06/24/21 History metformin 1,000 mg tablet 1,000 mg PO BID #180 tab 07/01/20 06/24/21 Rx diphenhydramine HCl 25 mg tablet 25 - 100 mg PO HS PRN 10/03/20 06/24/21 History (Benadryl Allergy) melatonin 10 mg tablet 10 mg PO HS PRN 10/03/20 06/24/21 History multivitamin 1 tab PO QPM 10/03/20 06/24/21 History hydrochlorothiazide 25 mg tablet 25 mg PO QPM #90 tab 12/03/20 06/24/21 Rx lisinopril 40 mg tablet 40 mg PO QPM #90 tab 01/02/21 06/24/21 Rx codeine 10 mg-guaifenesin 200 mg/5 5 ml PO Q6H PRN #100 ml 03/20/21 06/24/21 Rx mL oral liquid allopurinol 100 mg tablet 100 mg PO QPM #90 tab 04/15/21 06/24/21 Rx montelukast 10 mg tablet 10 mg PO QPM #90 tab 04/15/21 06/24/21 Rx alprazolam 0.5 mg tablet 0.5 mg PO DAILY PRN #30 tab 05/27/21 06/24/21 Rx dextroamphetamine-amphetamine 20 20 mg PO BID #60 tab 05/27/21 06/24/21 Rx mg tablet (Adderall) gemfibrozil 600 mg tablet 600 mg PO BID #180 tab 05/28/21 06/24/21 Rx amoxicillin 500 mg tablet 2,000 mg PO DIRECTED PRN 06/24/21 06/24/21 History atorvastatin 10 mg tablet 10 mg PO QPM 06/24/21 06/24/21 History benzonatate 100 mg capsule 100 mg PO TID PRN 06/24/21 06/24/21 History meloxicam 7.5 mg tablet (Mobic) 7.5 mg PO BID PRN 06/24/21 06/24/21 History Past Med/Surg History Medical History (Updated 06/24/21 @ 18:44 by Howard Choi MD) ADHD Asthma Has not used inhaler all year. Seems allergy-induced, and mask-wearing has improved symptoms. Avascular necrosis of bone of right hip Diabetes mellitus, type 2 Gout Hyperlipidemia Hypertension Insomnia Alprazolam PRN Kidney stones Lumbar spondylosis Surgical History History of colonoscopy History of left knee surgery History of open reduction and internal fixation (ORIF) procedure right leg---hardware in place History of tonsillectomy Status post right hip replacement Family History Other Adopted Family history not known due to adoption Social History Smoking Status: Former smoker Age Started Using Tobacco: 14; Age Quit Using Tobacco: 46; packs per day: 0.5; Second Hand Exposure: No; Do You Dip or Chew Tobacco: No; Tobacco Cessation Education Requested by Patient: No Hx Alcohol Use: Yes Alcohol type: beer and hard liquor Alcohol Intake Frequency: 4 or More x per/Week Hx Substance Use: No Preferred Language: Georgian Communication Ability: Effective Visual Impairment: No Limitations Hearing Ability: Normal Oral Therapist Required: Yes Beliefs That Will Affect Care: None marital status: single Current Living Situation: Alone current occupational status: employed current occupation: [employer] Machine Operator Other Information That Helps Us Care for You: No Feels Safe at Home: Yes Safety Concerns: Feels Safe At This Time Childhood Exposure to Second-Hand Smoke: No caffeine: Yes during the past year weight has: remained stable Dental Care, Regularly: Yes Physical Activity Frequency: 5-6 Times per Week Seatbelt Use: always Sunscreen Use: Yes Assistive Devices: None Review of Systems Review of Systems: As per HPI Physical Exam Physical Exam: General: Well-appearing 51-year-old male who is lying back in his hospital bed, relaxed upon my arrival. He is in no acute distress HEENT: Mucous membranes appear mildly dry. No JVD. Trachea midline Cardiac: Normal rate, regular rhythm. S1 and S2 are present without murmurs rubs or gallops Respiratory: Normal respiratory effort with symmetric stench of the chest. Lungs are clear to auscultation bilaterally without crackles or wheezes. Abdominal: Abdomen is soft, nontender, and nondistended to palpation. Extremities: No peripheral edema appreciated in the lower extremities. Neurologic: Cranial nerves II through XII grossly intact. Upper and lower motor movement is normal. Results & Data Results & Data ([facility]) Vital Signs (Past 12 Hours) Vital Signs Temp Pulse Resp BP Pulse Ox 06/24/21 01:30 115 H 18 108/74 93 06/24/21 01:12 94 06/24/21 00:47 36 C L 89 18 89/63 L 98 Code Status & VTE Plan VTE Prophylaxis Plan VTE Prophylaxis will be ordered: Yes Supervising Physician Co-Signing Physician Notes Attending addendum: I have physically seen this patient, have supervised the medical residents activities, and agree with the H&P unless as otherwise noted. Assessment and Plan: Hypotension/acute kidney injury Low blood pressure and increased heart rate responded to fluid resuscitation Continue IV fluids NSS at 100 mils per hour Hold meloxicam, lisinopril, and HCTZ Creatinine 2.62 upon admission, with baseline 1.01 Repeat laboratories every morning Follow urine culture and sensitivity Monitor for alcohol withdrawal with [facility] protocol, as may be contributing cause to hypovolemia EKG with questionable changes- Admit to monitored bed Serial troponins Echocardiogram Likely secondary to hypovolemia and increased heart rate Remaining orders and notations as noted Resident Activity Tracking Resident Involvement: Resident Care Provided Care Provided: Adult Hospital Medicine (1) Hyperlipidemia Hyperlipidemia type: unspecified Qualified Code(s): E78.5 - Hyperlipidemia, unspecified (2) Asthma Asthma complication type: unspecified Asthma persistence: unspecified Asthma severity: unspecified severity Qualified Code(s): J45.909 - Unspecified asthma, uncomplicated
[2021-06-24] MEDS ORDERED: BENZONATATE 100 MG CAPSULE PO PRN (06:40)
[2021-06-24] MEDS ORDERED: ALBUTEROL HFA 8 GM INHALER INH PRN (06:40)
[2021-06-24] MEDS ORDERED: MELOXICAM 7.5 MG TAB PO PRN (06:40)
[2021-06-24 07:05] LABS: Estimated Average Glucose 123 mg/dl; Hemoglobin A1C 5.9 % (4.5-5.6)
--- NOTE | 2021-06-24 07:22 | XRay Report ---
XR chest 1V portable CLINICAL HISTORY: Chest Pain. COMPARISON STUDY: 10/07/2020 TECHNIQUE: 1 view of the chest FINDINGS: Single frontal view of the chest demonstrates the cardiomediastinal silhouette to be within normal li mits. The lungs are clear of alveolar opacities. There is no evidence for pleural effusion. There is no evidence for vascular congestion. There is no acute osseous pathology. IMPRESSION: No acute cardiopulmonary disease. ACT 112: Negative or not required by law. Electronically signed by: Arturo Willis M.D. 06/24/2021 7:21 AM
[2021-06-24] MEDS ORDERED: AMPHETAMINE ASP/SULF/DEXTRAMPH 20 MG TAB PO SCH (09:00)
[2021-06-24] MEDS: gemfibroziL 600 MG TAB PO SCH ×2 (09:12→21:30)
[2021-06-24] MEDS: LACTATED RINGER'S 1,000 ML IV SCH ×2 (09:12→16:43)
[2021-06-24 09:46] LABS: BUN Creatinine Ratio 15.2 (10-20); Calcium 9.4 mg/dl (8.5-10.1); Creatinine Clr Calc Pharmacy 34.2 ml/min; Est GFR (African American) 26.1 ml/min; Est GFR (Non-African American) 22.5 ml/min; Potassium 3.9 mmol/L (3.5-5.1)
--- NOTE | 2021-06-24 11:34 | Electrocardiogram Report ---
Test Reason : Blood Pressure : / mmHG Vent. Rate : 117 BPM Atrial Rate : 117 BPM P-R Int : 152 ms QRS Dur : 122 ms QT Int : 346 ms P-R-T Axes : 058 -14 123 degrees QTc Int : 482 ms Poor data quality, interpretation may be adversely affected Sinus tachycardia Non-specific intra-ventricular conduction delay Abnormal ECG When compared with ECG of 07-OCT-2020 08:49, T wave amplitude has increased in Inferior leads Confirmed by Enrique Pop ([id number]) on 06/24/2021 11:33:29 AM Referred By: REFERRED SELF Confirmed By:Enrique Pop
--- NOTE | 2021-06-24 11:36 | Electrocardiogram Report ---
Test Reason : Blood Pressure : / mmHG Vent. Rate : 112 BPM Atrial Rate : 112 BPM P-R Int : 154 ms QRS Dur : 120 ms QT Int : 348 ms P-R-T Axes : 059 -08 134 degrees QTc Int : 475 ms Poor data quality, interpretation may be adversely affected Sinus tachycardia Non-specific intra-ventricular conduction delay Abnormal ECG When compared with ECG of 24-JUN-2021 01:00, (unconfirmed) No significant change was found Confirmed by Enrique Pop ([id number]) on 06/24/2021 11:35:53 AM Referred By: REFERRED SELF Confirmed By:Enrique Pop
[2021-06-24] MEDS ORDERED: LACTATED RINGER'S 1,000 ML IV ONE (11:51)
--- NOTE | 2021-06-24 12:58 | XCELERA ---
[id number]
--- NOTE | 2021-06-24 13:53 | Ultrasound Report ---
RENAL ULTRASOUND HISTORY: Acute kidney injury. COMPARISON: None. FINDINGS: Right kidney: 10.8 cm. No hydronephrosis. Normal corticomedullary differentiation and cortical thickn ess. Left kidney: 11.0 cm per No hydronephrosis. Questionable lobular lesion within the lower pole measuri ng 2.3 cm. Bladder: No bladder wall thickening. The bilateral ureteral jets were identified. IMPRESSION: 1. No hydronephrosis. 2. Questionable lobular lesion within the lower pole of the left kidney measuring 2.3 cm which may re present the normal cortex. However, dedicated follow-up nonemergent renal MRI or CT is recommended to exclude the possibility of a renal mass. ACT 112: Positive. There are findings on this exam that require communication between the performing entity and the patient following Patient Test Result Information Act ([place] Act 112) guidelines. Electronically signed by: Mason Jha M.D. 06/24/2021 1:52 PM
[2021-06-24 14:42] LABS: Appearance Urine Cloudy (Clear); Bacteria Urine Automated Negative (Negative); Bilirubin Urine Negative (Negative); Blood Urine Negative (Negative); Color Urine Dark Yellow; Epithelial Cell Urine Auto >30 /lpf (0-5); Glucose Urine UA Negative (Negative); Ketones Urine Trace (Negative); Leukocyte Esterase Urine Negative (Negative); Nitrite Urine Negative (Negative); Protein Urine 2+ (Negative); Specific Gravity Urine 1.019 (1.000-1.030); Urobilinogen Urine Negative (Negative)
[2021-06-24 15:01] LABS: Calcium Oxalate Crystals Urine Present (None Prsent)
[2021-06-24 15:02] LABS: Cast Urine Automated >30 /lpf (0-5)
[2021-06-24 16:14] LABS: Amphetamines+Metham, Urine Pos (Neg); Barbiturates, Urine Neg (Neg); Benzodiazepine, Urine Neg (Neg); Cocaine, Urine Neg (Neg); MDMA (Ecstacy), Urine Neg (Neg); Methadone, Urine Neg (Neg); Opiate, Urine Neg (Neg); Phencyclidine, Urine Neg (Neg)
[2021-06-24 16:40] LABS: Creatinine Urine Random 262.9 mg/dl; Protein Creatinine Ratio Urine 0.3 (0-0.2); Total Protein Urine Random 83.9 mg/dl (0-11.9)
[2021-06-24 16:55] LABS: BUN Creatinine Ratio 19.3 (10-20); Calcium 8.7 mg/dl (8.5-10.1); Creatinine Clr Calc Pharmacy 38.4 ml/min; Est GFR (Non-African American) 25.9 ml/min
--- NOTE | 2021-06-24 17:18 | Hospitalist Progress Note ---
Date of Service June 24, 2021 Assessment & Plan (1) Acute kidney injury: Plan: Suspect combination of prerenal perfusion from dehydration subsequently causing ATN in the setting of hydrochlorothiazide, Adderall, meloxicam and lisinopril. Spot protein to creatinine ratio not consistent of nephrotic syndrome. Do not expect ischemic cause due to lack of pain. No post renal obstructive uropathy on renal ultrasound. No recent antibiotics to suggest this is the cause. Intravenous fluids switch to lactated Ringer's at 150 mils per hour after additional 1 L bolus given due to no urine output earlier in the day. He finally produce a urine sample around 2:00 PM -8 ounces at this time -no signs of hypervolemia therefore will avoid a Basilio catheter for more accurate urine output at this time but strict I's and O's required. Daily weights Hold hydrochlorothiazide, lisinopril and Metformin. Creatinine initially bumped but appears improved on afternoon blood test, BUN continues to increase. If still trending the wrong direction tomorrow will likely need to get nephrology involved. (2) Hypotension: Plan: with tachycardia, responsive to fluid resuscitation In the setting of sudden-onset orthostatic symptoms, diaphoresis, nausea; no reported chest pain, shortness of breath, loss of consciousness, focal neurologic deficits Work-up as follows: JONNY, likely prerenal + ATN as above Troponin undetectably low x2 - do not suspect ACS given lack of symptoms of this despite EKG changes. TTE - unremarkable. Hold home antihypertensives (3) Renal mass: Plan: Suspect incidental, seen on ultrasound. Discussed with radiology and recommend MRI abdomen without contrast -due to decreased EGFR. MRI pending at this time. (4) Leucocytosis: Plan: Elevated white count noted, however, suspect stress demargination in the setting of previous hypotension that was responsive to fluids; no signs or symptoms concerning with active infection. No findings c/w anemia. Repeat with AM labs (5) Asthma: Plan: Albuterol as needed (6) Hyperlipidemia: Plan: Continue atorvastatin 10 mg p.o. daily (7) Alcohol use: Plan: Patient reports consuming 4 "standard drinks" daily on a regular basis No history or alcohol withdrawal symptoms noted at this time. Monitor for symptoms, consider AWSS if indicated. (8) ADD (attention deficit disorder): Plan: Hold Adderall in the setting of JONNY (9) Diabetes mellitus, type 2: Plan: -- last A1c 5.5% in 10/2020 Hold home Metformin Check A1c in a.m.; pending result, can consider adding on AC at bedtime glucose checks and bolus insulin Plan: VTE prophylaxis -SCDs Diet -regular Disposition -continue on med telemetry Admission and Anticipated Discharge Date Admission Date: June 24, 2021 Subjective See H&P from earlier today. No dysuria, CVA tenderness, fever or chills. Past urine at approximately 2 PM today. No dizziness on getting up and going to the bathroom. Patient seen and examined the same day therefore not be billing for this encounter. Review of Systems Review of Systems: All systems reviewed & are unremarkable except as noted in Subjective Physical Exam Constitutional: WD/WN, vitals as above + obese Eyes: + anicteric sclerae; normal pupil size ENMT: external ear and nose normal, oropharynx normal Respiratory: normal respiratory effort, lungs clear to auscultation Cardiovascular: RRR, no murmur, no edema Gastrointestinal (Abdomen): Inspection/Auscultation: normal bowel sounds; abdomen not distended Percussion/Palpation: abdomen soft; abdomen nontender, no guarding and abdomen not rigid Musculoskeletal: no cyanosis or clubbing, extremities motor strength 5/5 Skin: no rashes, warm and dry Neurologic: moves all extremities and awake; not confused Psychiatric: A+Ox3, euthymic affect Genitourinary: no CVA tenderness Results & Data Results & Data ([facility]) Vital Signs (Past 12 Hours) Vital Signs Pulse Pulse Resp BP BP Pulse Ox 06/24/21 17:09 91 H 14 119/87 99 06/24/21 12:09 67 20 130/88 99 06/24/21 09:13 104 H 18 133/81 96 06/24/21 06:12 90 18 114/70 94 06/24/21 05:30 93 H 16 PG Care Time/CCT Total # of Minutes Spent Total Time Spent with Patient: Total time spent is greater than 50% in coordination of care (as documented) at patient's floor/unit and/or counseling patient: Coding Level of Care Code None Diagnoses Asthma J45.909 Asthma complication type: unspecified Asthma persistence: unspecified Asthma severity: unspecified severity Hyperlipidemia E78.5 Hyperlipidemia type: unspecified Alcohol use Z72.89 Hypotension I95.9 Acute kidney injury N17.9 Leucocytosis D72.829 Renal mass N28.89 ADD (attention deficit disorder) F90.9 Attention deficit-hyperactivity disorder type: unspecified Hyperactivity presence: present Diabetes mellitus, type 2 E11.9 (1) ADD (attention deficit disorder) Attention deficit-hyperactivity disorder type: unspecified Hyperactivity presence: present Qualified Code(s): F90.9 - Attention-deficit hyperactivity disorder, unspecified type (2) Hyperlipidemia Hyperlipidemia type: unspecified Qualified Code(s): E78.5 - Hyperlipidemia, unspecified (3) Asthma Asthma complication type: unspecified Asthma persistence: unspecified Asthma severity: unspecified severity Qualified Code(s): J45.909 - Unspecified asthma, uncomplicated
[2021-06-24] MEDS: allopurinoL 100 MG TAB PO SCH (21:31)
[2021-06-24] MEDS: ATORVASTATIN 10 MG TAB PO SCH (21:31)
[2021-06-24] MEDS: MONTELUKAST SODIUM 10 MG TABLET PO SCH (21:32)
[2021-06-24] MEDS: CETIRIZINE HCL 10 MG TABLET PO SCH (21:32)
[2021-06-24] MEDS: MULTIVITAMIN TAB PO SCH (21:32)
[2021-06-25] MEDS: LACTATED RINGER'S 1,000 ML IV SCH ×3 (00:17→16:19)
--- NOTE | 2021-06-25 00:46 | Billing Data ---
Date of Service June 25, 2021 Coding Level of Care Code 33237 Initial Inpt Care Lvl 3
[2021-06-25] MEDS: MELATONIN 3 MG TAB PO PRN (01:06)
[2021-06-25] MEDS: ALPRAZolam 0.5 MG TABLET PO PRN (01:06)
[2021-06-25 07:10] LABS: Basophils # (auto) 0.02 K/uL (0-0.2); Basophils % (auto) 0.3 %; Eosinophils % (auto) 4.3 %; Hematocrit (blood only) 36.1 % (42-52); Hemoglobin 12.4 g/dL (14.0-18.0); Immature Granulocytes # (auto) 0.02 K/uL (0.00-0.02); Immature Granulocytes % (auto) 0.3 %; Lymphocytes % (auto) 35.9 %; Mean Corpuscular Hemoglobin 32.2 pg (25-34); Mean Corpuscular Hgb Conc 34.3 g/dL (32-36); Mean Corpuscular Volume 93.8 fL (80-100); Mean Platelet Volume 11.6 fL (7.4-10.4); Monocytes # (auto) 0.62 K/uL (0.11-0.59); Monocytes % (auto) 8.9 %; Neutrophils % (auto) 50.3 %; Platelet Count 227 K/uL (130-400); RDW Coefficient of Variation 12.9 % (11.5-14.5); Red Blood Count 3.85 M/uL (4.7-6.1); White Blood Count 6.96 K/uL (4.8-10.8)
[2021-06-25 07:29] LABS: BUN Creatinine Ratio 25.8 (10-20); Calcium 9.1 mg/dl (8.5-10.1); Creatinine Clr Calc Pharmacy 66.9 ml/min; Est GFR (African American) 58.4 ml/min; Est GFR (Non-African American) 50.4 ml/min; Potassium 4.1 mmol/L (3.5-5.1)
[2021-06-25] MEDS: gemfibroziL 600 MG TAB PO SCH ×2 (08:12→21:17)
--- NOTE | 2021-06-25 08:30 | Magnetic Resonance Report ---
MR abdomen wo con CLINICAL HISTORY: Suspicion of a renal mass on US . MR to further evaluate COMPARISON STUDY: Renal ultrasound from 06/24/2021 TECHNIQUE: Multiplanar multisequence images of the abdomen were performed without contrast. FINDINGS: Liver: Homogeneous in signal without focal mass. There is suspicion of mild fatty infiltration. Spleen: Normal in size and appearance. Pancreas: No mass or ductal dilatation. Gallbladder: The gallbladder is contracted with cholelithiasis. Adrenal glands: Normal without masses. Kidneys: Compared to the previous ultrasound, there is no evidence for a left renal mass. The finding seen on ultrasound relate to lobulation. There is evidence for a 1.5 cm right renal cyst. There is n o evidence for hydronephrosis bilaterally. IMPRESSION: 1. No evidence for left renal mass. The finding seen on ultrasound relate to lobulation of the left k idney. 2. Contracted gallbladder with cholelithiasis. ACT 112: Negative or not required by law. Electronically signed by: Arturo Willis M.D. 06/25/2021 8:28 AM
--- NOTE | 2021-06-25 15:38 | Hospitalist Progress Note ---
Date of Service June 25, 2021 Assessment & Plan (1) Acute hypotension: (2) Acute kidney injury: (3) Dehydration: (4) Benign essential hypertension: (5) Diabetes mellitus, type 2: Plan: Mr. Bruno is a 51-year-old man with a history of Hypertension, Hyperlipidemia, Asthma, Anxiety, ADD, and Type 2 Diabetes Mellitus who presented to [facility] with Hypotension, Tachycardia, Dehydration, and JONNY. Hypotension: BP's have improved with IVF's Work-up as follows: White count appreciated to 16, neutrophil predominance JONNY, likely prerenal, outlined as below At this time, primarily suspect that patient symptoms were related to hypovolemia/dehydration -- patient reported decreased H2O intake over preceding days, 4 drink/night, and has two ongoing antihypertensive agents. -Rrerenal-appearing JONNY -Suspect stress demargination in the setting of hypotension that was responsive to fluids; no signs or symptoms concerning with active infection. No findings c/w anemia. Recent history of COVID-19 approximately 1 month ago noted; sudden onset of post-COVID dysautonomia/POTS would be atypical, but can check orthostatics. Continue hydration NSS @ 125cc/hr Hold home antihypertensives Monitor on telemetry JONNY His baseline creatinine appears to be around 1.0 mg/dL. Creatinine peaked at 3.02 mg/dL but is trending towards baseline, Cr is 1.55 mg/dL today Continue IVF's, oral hydration. Hold home antihypertensives, including hydrochlorothiazide and lisinopril; also hold metformin. -Recheck labs in the morning. T wave inversions T wave inversions appreciated in leads I and aVL, which appear to be new compared to prior EKGs -- likely secondary to LVH. -Troponin I undetectable x 2. -Echocardiogram 06/24/21 Shows normal LV size, wall motion, and systolic function, LVEF 55% to 60%, borderline concentric LVH. Anxiety/mood disorder/ADD Continue home medications. Hyperlipidemia Continue Atorvastatin 10 mg daily. -Continue Gemfibrozil 600 mg b.i.d.. [id number]--fejv A1c 5.5% in 10/2020 Hold home Metformin Check A1c in a.m.; pending result, can consider adding on AC at bedtime glucose checks and bolus insulin. -After renal function returns to baseline, resume Metformin 1000 mg b.i.d.. Alcohol use Patient reports consuming 4 "standard drinks" daily on a regular basis No history of alcohol withdrawal noted at this time. Monitor for symptoms, consider AWSS if indicated. -Increase non-alcoholic fluid intake. Code: FULL CODE Dispo: MS/telemetry Diet: Regular PPx: SCDs Admission and Anticipated Discharge Date Admission Date: June 24, 2021 Supervising Physician Co-Signing Physician Notes chart reviewed jessica mac pa-c Results & Data Results & Data ([facility]) Vital Signs (Past 12 Hours) Vital Signs Temp Pulse Pulse Resp BP Pulse Ox 06/25/21 14:54 36.9 C 76 20 112/74 95 06/25/21 11:45 37.1 C 81 20 97/59 L 97 06/25/21 08:04 36.7 C 72 20 109/71 95 06/25/21 06:55 73 06/25/21 03:40 36.9 C 80 16 119/77 98 PG Care Time/CCT Total # of Minutes Spent Total Time Spent with Patient: Total time spent is greater than 50% in coordination of care (as documented) at patient's floor/unit and/or counseling patient:32 Coding Level of Care Code 35545 Subseq Hosp Care Lvl 3 Diagnoses Acute hypotension I95.9 Acute kidney injury N17.9 Benign essential hypertension I10 Dehydration E86.0 Diabetes mellitus, type 2 E11.9 Time Spent (min) 50
[2021-06-25] MEDS: CETIRIZINE HCL 10 MG TABLET PO SCH (21:16)
[2021-06-25] MEDS: MULTIVITAMIN TAB PO SCH (21:17)
[2021-06-25] MEDS: ATORVASTATIN 10 MG TAB PO SCH (21:17)
[2021-06-25] MEDS: MONTELUKAST SODIUM 10 MG TABLET PO SCH (21:18)
[2021-06-25] MEDS: allopurinoL 100 MG TAB PO SCH (21:18)
[2021-06-26] MEDS: LACTATED RINGER'S 1,000 ML IV SCH ×2 (00:24→07:33)
[2021-06-26] MEDS: ALPRAZolam 0.5 MG TABLET PO PRN (02:18)
[2021-06-26] MEDS: MELATONIN 3 MG TAB PO PRN (02:18)
[2021-06-26 07:08] LABS: BUN Creatinine Ratio 22.2 (10-20); Calcium 9.3 mg/dl (8.5-10.1); Creatinine Clr Calc Pharmacy 88.6 ml/min; Est GFR (Non-African American) 70.8 ml/min; Potassium 4.2 mmol/L (3.5-5.1)
[2021-06-26] MEDS: gemfibroziL 600 MG TAB PO SCH (08:56)
--- NOTE | 2021-06-26 10:18 | Discharge Summary ---
Date of Service June 26, 2021 Admission HPI Per Admitting Provider This is a 51-year-old man with a history of hypertension, hyperlipidemia, asthma, anxiety, ADD, type 2 diabetes who presented to [facility] for evaluation of lightheadedness. 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 He said that when he was lifting a bottles from lower shelf, he would start feeling lightheaded when standing up. He also noticed that this was becoming more frequently as the night went on. He felt diaphoretic. He denied any chest pain or palpitations throughout this time. Denied any shortness of breath. He did say he felt intermittently nauseous. He did not pass out. Patient said this is intermittently happened in the past when his blood pressure medications were being changed from, but has not happened in several years. He has not had any recent changes in his medications. He does say that he has been drinking less water than usual. He denies any changes in appetite or bowel movements. Denies any weakness in his arms or his legs, numbness or tingling. He denies any recent illnesses, other than diagnosed with Covid approximately 1 month ago when he was asymptomatic. He denies any recent nausea or vomiting. He denies any recent cough, fevers, chills. Socially, he lives locally by himself. He endorses approximately 4 "standard drinks" per night, unchanged recently. Denies any recent tobacco use. Denies any use of recreational drugs at present; does endorse h/o using in his 30s. Upon arrival in the ED, patient was found to have a blood pressure of 89/63 and heart rate of 90. His heart rate subsequently increased to low 110s. He was afebrile. Labs were significant for leukocytosis to 16 with neutrophilic pred ominance, JONNY (BUN 42/creatinine 2.62), elevated calcium 10.9. Chest x-ray did not reveal any focal abnormalities on my read. Urine studies pending. EKG did demonstrates previously seen intraventricular conduction delay, as well as T wave inversions in leads I and aVL, which appears to be new from prior EKG. He was given 1 L of normal saline and reported significant improvement in his symptoms. He was then started on normal saline drip. Admission Exam Per Admitting Provider General: Well-appearing 51-year-old male who is lying back in his hospital bed, relaxed upon my arrival. He is in no acute distress HEENT: Mucous membranes appear mildly dry. No JVD. Trachea midline Cardiac: Normal rate, regular rhythm. S1 and S2 are present without murmurs rubs or gallops Respiratory: Normal respiratory effort with symmetric expansion of the chest. Lungs are clear to auscultation bilaterally without crackles or wheezes. Abdominal: Abdomen is soft, nontender, and nondistended to palpation. Extremities: No peripheral edema appreciated in the lower extremities. Neurologic: Cranial nerves II through XII grossly intact. Upper and lower motor movement is normal. Principal Diagnosis -- Dehydration. -- Acute Hypotension. -- JONNY. Discharge Exam GENERAL: Patient in no acute distress. HEENT: Head is atraumatic, normocephalic. EOM's intact. Facies symmetric. No perioral cyanosis. Mucous membranes moist. NECK: No JVD. JVP is not elevated. Carotid upstrokes are + 2 bilaterally. No bruits are noted. CHEST/LUNGS: Clear to auscultation throughout all lung brooks. No wheezes, rales, or crackles. CVS: S1 and S2 are regular at 70 bpm without obvious murmurs, gallops, or rubs. PMI is nondisplaced. No lifts, heaves, or thrills. No abdominal aortic or renal bruits. ABDOMINAL EXAM: Bowel sounds are present. No masses, organomegaly, or tenderness. EXTREMITIES: No clubbing or cyanosis. No edema. Intact posterior tibial and radial pulses bilaterally. NEUROLOGIC EXAM: Patient is awake, alert, and oriented. Pleasant and cooperative. Answers questions appropriately. Speech is clear. Normal movement in all 4 extremities. Discharge Data Allergies Allergy/AdvReac Type Severity Reaction Status Date / Time No Known Allergies Allergy Unknown Verified 06/24/21 01:16 Consultations 06/24/21 01:55 ED Decision to Admit Stat Procedures Performed Laboratory Results - last 24 hr 06/26/21 06:12 Sodium 135 L Potassium 4.2 Chloride 103 Carbon Dioxide 25 Anion Gap 7 BUN 26 H Creatinine 1.17 D Est Cr Clr Drug Dosing 88.6 Est GFR ( Amer) 82.0 Est GFR (Non-Af Amer) 70.8 BUN/Creatinine Ratio 22.2 H Glucose 100 H Calcium 9.3 Ordered Studies 06/24/21 13:30 US renal/blad retro comp Stat: Right kidney: 10.8 cm. No hydronephrosis. Normal corticomedullary differentiation and cortical thickness. Left kidney: 11.0 cm per No hydronephrosis. Questionable lobular lesion within the lower pole measuring 2.3 cm. Bladder: No bladder wall thickening. The bilateral ureteral jets were identified. IMPRESSION: 1. No hydronephrosis. 2. Questionable lobular lesion within the lower pole of the left kidney measuring 2.3 cm which may represent the normal cortex. However, dedicated follow-up nonemergent renal MRI or CT is recommended to exclude the possibility of a renal mass. 06/24/21 14:17 MR abdomen without con Urgent: Liver: Homogeneous in signal without focal mass. There is suspicion of mild fatty infiltration. Spleen: Normal in size and appearance. Pancreas: No mass or ductal dilatation. Gallbladder: The gallbladder is contracted with cholelithiasis. Adrenal glands: Normal without masses. Kidneys: Compared to the previous ultrasound, there is no evidence for a left renal mass. The finding seen on ultrasound relate to lobulation. There is evidence for a 1.5 cm right renal cyst. There is no evidence for hydronephrosis bilaterally. IMPRESSION: 1. No evidence for left renal mass. The finding seen on ultrasound relate to lobulation of the left kidney. 2. Contracted gallbladder with cholelithiasis. Hospital Course (1) Acute hypotension: (2) Acute kidney injury: (3) Dehydration: (4) Benign essential hypertension: (5) Diabetes mellitus, type 2: Mr. Bruno is a 51-year-old man with a history of Hypertension, Hyperlipidemia, Asthma, Anxiety, ADD, and Type 2 Diabetes Mellitus who presented to [facility] with Hypotension, Tachycardia, Dehydration, and JONNY. Hypotension: BP and Renal Function have improved with IVF's Work-up as follows: White count appreciated to 16, with a leftward shift, resolved. JONNY, likely prerenal, as outlined below - now resolved. Primarily suspect that patient symptoms were related to hypovolemia/dehydration -- patient reported decreased H2O intake over preceding days, 4 drink/night, and has two ongoing antihypertensive agents. - Prerenal-appearing JONNY - Suspect stress demargination in the setting of hypotension that was responsive to fluids; no signs or symptoms concerning with active infection. No findings c/w anemia. Recent history of COVID-19 approximately 1 month ago noted; sudden onset of post-COVID dysautonomia/POTS would be atypical, but can check orthostatics. Continue oral hydration. Hold Lisinopril and Hydrochlorothiazide until seen in follow-up by your PCP. JONNY -Patient is stable for discharge. His baseline creatinine appears to be 1.0 mg/dL. Creatinine peaked at 3.02 mg/dL but is trending towards baseline, Cr is 1.17 mg/dL toda.y Continue oral hydration. Hold home antihypertensives, including hydrochlorothiazide and lisinopril until seen by PCP in follow-up. -Recheck BMP as an outpatient. T wave inversions T wave inversions appreciated in leads I and aVL, which appear to be new compared to prior EKGs -- likely secondary to LVH. -Troponin I undetectable x 2. -Echocardiogram 06/24/21 shows normal LV size, wall motion, and systolic function, LVEF 55% to 60%, borderline concentric LVH. Anxiety/mood disorder/ADD Continue home medications. Hyperlipidemia - Continue Atorvastatin 10 mg daily. - Continue Gemfibrozil 600 mg b.i.d.. T2DM-- You may resume Metformin following discharge. HgbA1C is 5.9% on 06/24/21. Alcohol use Patient reports consuming 4 "standard alcoholic drinks" on a daily basis. No evidence of alcohol withdrawal noted during his hospitalization. -Increase non-alcoholic fluid intake, drink at least 2 liters of water daily. Total Time Total Time Spent Total Time Spent (In Minutes): 42 Discharge Plan Discharge Items Patient Disposition: Home - Self-Care Reason For Visit: PRESYNCOPE, JONNY Discharge Diagnosis: 1. Dehydration. 2. Acute Kidney Injury. 3. Acute Hypotension. Condition on Discharge: Good Health Concerns: 1. Stay well hydrated. 2. Minimize intake of alcoholic beverages. Activity: Resume your previous activity Lifting Comment: No restrictions. Bathing: No limitations Sexual Activity: When tolerated Exercise/Sports: Gradually increase as tolerated Driving/Machine Use: No limitations Weightbearing: Full weightbearing Non-emergency contact: Primary Care Provider Call non-emergency contact if: you have any medication questions, your symptoms worsen and you have a fever Follow-up/Referrals: Griel,Willian C. III, FOOD AND NUTRITION SERVICES SUPERVISOR [Primary Care Provider] - Diet: Carb Consistent or DM2 Diet Comment: Drink more water. Addtl Attending Provider Instructions: make sure to stay well hydrated, have follow up with willian leon next week, and have him check labwork (BMP) in follow up Pending Studies at Discharge: No Stand-Alone Forms: My [facility], Smoking Cessation Medications and DC Order Prescriptions: Continued hydrochlorothiazide 25 mg tablet 25 mg PO QPM Qty: 90 RF: 3 lisinopril 40 mg tablet 40 mg PO QPM Qty: 90 RF: 1 allopurinol 100 mg tablet 100 mg PO QPM Qty: 90 RF: 1 montelukast 10 mg tablet 10 mg PO QPM Qty: 90 RF: 1 dextroamphetamine-amphetamine [Adderall] 20 mg tablet 20 mg PO BID Qty: 60 RF: 0 alprazolam 0.5 mg tablet 0.5 mg PO DAILY PRN (Reason: anxiety) Qty: 30 RF: 2 gemfibrozil 600 mg tablet 600 mg PO BID Qty: 180 RF: 1 cetirizine [Zyrtec] 10 mg tablet 10 mg PO QPM RF: 0 albuterol sulfate 90 mcg/actuation HFA aerosol inhaler 1 puff inhalation Q6 PRN (Reason: Shortness Of Breath) Qty: 1 RF: 0 metformin 1,000 mg tablet 1,000 mg PO BID Qty: 180 RF: 3 multivitamin Tablet 1 tab PO QPM RF: 0 diphenhydramine HCl [Benadryl Allergy] 25 mg Tablet 25 - 100 mg PO HS PRN (Reason: Sleep) RF: 0 melatonin 10 mg Tablet 10 mg PO HS PRN (Reason: Sleep) RF: 0 atorvastatin 10 mg tablet 10 mg PO QPM RF: 0 amoxicillin 500 mg tablet 2,000 mg PO DIRECTED PRN (Reason: PRIOR TO DENTAL APPOINTMENTS) RF: 0 Discontinued codeine-guaifenesin 10-200 mg/5 mL liquid 5 ml PO Q6H PRN (Reason: cough) Qty: 100 RF: 0 benzonatate [Tessalon Perles] 100 mg Capsule 100 mg PO TID PRN (Reason: Cough) RF: 0 meloxicam [Mobic] 7.5 mg tablet 7.5 mg PO BID PRN (Reason: Pain) RF: 0 Discharge Orders: Discharge Order (Routine); Ordered 06/26/21 Ordered By: Sushil Velazco/Other Patient Handouts: Dehydration Admission Data Admit Date/Time: 06/24/21 03:04 Attending Provider: Roman Becerra Admit Provider: Roman Rousseau Primary Care Provider: Willian Leon III Other Providers: James Hatfield ; Howard Choi Other Interventions: Discharge Summary Assessment (RN) Last Done: 06/26/21 13:00 Supervising Physician Co-Signing Physician Notes I personally examined the patient and verified all mckeon points of history and exam, discussed case, and agree with decision making with Renetta Feliciano PAC Feeling better and feeling up to going home. Vitals noted. No distress. Breathing unlabored no accessory muscle use. No focal neuro deficits. AKIimproved. Stable for home. Outpatient follow-up Coding Level of Care Code D/C DAY MANAGEMENT >30 MINS Diagnoses Acute hypotension I95.9 Acute kidney injury N17.9 Dehydration E86.0 Benign essential hypertension I10 Diabetes mellitus, type 2 E11.9 Time Spent (min) 50 LAB Results Lipids: Cholesterol Level 181 mg/dl (0-200) 06/30/20 06:49 06/30/20 LDL Cholesterol, Calculated mg/dl 06/30/20 06:49 06/30/20 HDL Cholesterol 47 mg/dl 06/30/20 06:49 06/30/20 Triglycerides Level 566 mg/dl (0-150) H 06/30/20 06:49 06/30/20 A1C: Hemoglobin A1c 5.9 % (4.5-5.6) H 06/24/21 01:00 06/24/21
[2021-06-27 00:02] LABS: Amphetamine Urine, Confirm 7240 ng/mL (<250); Methamphetamine, Ur Confirm NEGATIVE ng/mL (<250)
== END 2021-06-26 15:18 | disposition home or self-care (01) ==
LOC: EDINP 00:38 → ED 00:38 → SUATTDRO 03:04 → EDINP 17:09 → 2N 17:48